=== PATIENT | female | born 1985 | race Caucasian/White ===

== ENCOUNTER 2023-04-15 10:52 | Outpatient (OUT) | payer OTHER, SELFPAY ==
[2023-04-16 05:07] LABS: Progesterone 52.5 ng/mL (.)
== END 2023-04-15 10:53 ==
LOC: LAB 10:52
PROVIDERS: Visit Provider Obstetrics & Gynecology
DX: N92.6 Irregular menstruation, unspecified (principal)
CPT/HCPCS: 36415; 84144

== ENCOUNTER 2023-04-27 13:25 | Outpatient (OUT) | payer OTHER, SELFPAY ==
[2023-04-27 14:28] LABS: HCG Quantitative <1 mIU/mL
== END 2023-04-27 13:26 | disposition home or self-care (01) ==
PROVIDERS: Visit Provider Obstetrics & Gynecology
DX: N83.9 Noninflammatory disorder of ovary, fallopian tube and broad ligament, unspecified (principal)
CPT/HCPCS: 36415; 84702

== ENCOUNTER 2023-04-27 14:24 | Day surgery (SDC) | payer OTHER, SELFPAY ==
--- NOTE | 2023-04-27 14:22 | FL_ITS ---
[address] [address] Patient Name: EDUARDO ALCALA MRN: [id number] date: 1985 Sex: F Assigned Patient Location: [place] Current Patient Location: [place] Accession/Order Number: [id number] Exam Date: 04/27/2023 14:55 Report Date: 04/27/2023 15:57 At the request of: NICO GAMEZ Procedure: RI hysterosalpingography EXAMINATION: RI hysterosalpingography HISTORY: Fallopian tube disorder N83.9 Fragility COMPARISON: No relevant comparison available. TECHNIQUE: Informed consent was obtained. A sterile vaginal speculum was introduced and, following cleansing of the cervix, a attempt to insert a balloon-tipped catheter was made. The catheter could not be advanced through the internal os. Multiple attempts were made to dilate the os without success. After approximately 10 minutes the procedure was terminated. IMPRESSION: Technically unsuccessful hysterosalpingogram, the catheter could not be advanced through the cervix Electronically authenticated by: BENNIE BROOKE Date: 04/27/2023 15:57
[2023-04-27] MEDS: IOHEXOL 240 MG/ML - 10 ML VIAL INJ (15:10)
--- NOTE | 2023-04-27 15:58 | PC.NURSE ---
[address] Manley. Pt recommended to follow up with Dr Babcock for furthur instructions.
== END 2023-04-27 15:25 | disposition home or self-care (01) ==
LOC: FL 14:24
PROVIDERS: Radiology Diagnostic Radiology; Visit Provider Obstetrics & Gynecology
DX: N83.9 Noninflammatory disorder of ovary, fallopian tube and broad ligament, unspecified (principal)
CPT/HCPCS: 36415; 74740; 84702; Q9966

== ENCOUNTER 2023-05-12 07:39 | Outpatient (OUT) | payer OTHER, SELFPAY ==
[2023-05-13 05:08] LABS: Progesterone 8.4 ng/mL (.)
== END 2023-05-12 07:40 | disposition home or self-care (01) ==
LOC: LAB 07:41
PROVIDERS: Visit Provider Obstetrics & Gynecology
DX: N92.6 Irregular menstruation, unspecified (principal)
CPT/HCPCS: 36415; 84144

== ENCOUNTER 2023-06-25 15:42 | Outpatient (OUT) | payer OTHER, SELFPAY ==
[2023-06-27 04:07] LABS: Progesterone 22.7 ng/mL (.)
== END 2023-06-25 15:43 | disposition home or self-care (01) ==
LOC: LAB 15:45
PROVIDERS: Visit Provider Obstetrics & Gynecology
DX: N92.6 Irregular menstruation, unspecified (principal)
CPT/HCPCS: 36415; 84144

== ENCOUNTER 2023-07-08 16:08 | Outpatient (OUT) | payer OTHER, SELFPAY ==
[2023-07-08 17:29] LABS: HCG Quantitative <1 mIU/mL
--- NOTE | 2023-07-09 14:51 | SUR.PREOP ---
07/07/23 Phone call from More Berman LPN to schedule pt this 07/[address] Babcock doing the hsg. She states that she will contact the patient and have her come in for labs on 07/08 and will make her aware of appt date and time.
[2023-07-09 16:40] VITALS: BMI 21.0
--- NOTE | 2023-07-09 16:45 | PC.NURSE ---
1632 Pt c/o minimal amounts of vag bleeding and no pain.
== END 2023-07-08 16:35 | disposition home or self-care (01) ==
LOC: LAB 16:10
PROVIDERS: Visit Provider Obstetrics & Gynecology
DX: N97.0 Female infertility associated with anovulation (principal); N83.9 Noninflammatory disorder of ovary, fallopian tube and broad ligament, unspecified; N97.9 Female infertility, unspecified; E28.2 Polycystic ovarian syndrome
CPT/HCPCS: 36415; 84702

== ENCOUNTER 2023-07-09 15:48 | Day surgery (SDC) | payer OTHER, SELFPAY ==
--- NOTE | 2023-07-09 16:30 | FL_ITS ---
[address] [address] Patient Name: EDUARDO ALCALA MRN: [id number] date: 1985 Sex: F Assigned Patient Location: [place] Current Patient Location: LAB Accession/Order Number: [id number] Exam Date: 07/09/2023 15:55 Report Date: 07/09/2023 16:52 At the request of: NICO BABCOCK Procedure: FL hysterosalpingography EXAMINATION: FL hysterosalpingography HISTORY: Oligo-ovulation N97.0, Fallopian tube disorder N83.9, N97.9 COMPARISON: No relevant comparison available. TECHNIQUE: This exam was performed by Dr. Babcock. I was not present during the exam. 15 seconds of fluoroscopy. 2 images. FINDINGS: FALLOPIAN TUBES: Patent fallopian tubes bilaterally. ENDOMETRIAL CAVITY: No scarring, filling defects, or dilatation. OTHER: Negative. FL/FL hysterosalpingography IMPRESSION: Normal exam Electronically authenticated by: BENNIE BROOKE Date: 07/09/2023 16:52
== END 2023-07-09 16:30 ==
PROVIDERS: Visit Provider Obstetrics & Gynecology
DX: N97.0 Female infertility associated with anovulation (principal); N83.9 Noninflammatory disorder of ovary, fallopian tube and broad ligament, unspecified; N97.9 Female infertility, unspecified; E28.2 Polycystic ovarian syndrome
CPT/HCPCS: 74740; Q9966

== ENCOUNTER 2023-07-10 21:17 | Emergency (ER) | payer OTHER, SELFPAY ==
[2023-07-10] VITALS (10 sets, daily range): BP systolic 105–138; BP diastolic 64–82; PULSE 105; RESP 99; TEMP 36.9; O2SAT 93–100; BMI 21.0
--- NOTE | 2023-07-10 21:28 | CT_ITS ---
The [address] [address] Patient Name: EDUARDO ALCALA MRN: [id number] date: 1985 Sex: F Assigned Patient Location: ER Current Patient Location: ER Accession/Order Number: [id number] Exam Date: 07/10/2023 22:12 Report Date: 07/10/2023 23:43 At the request of: GRICELDA WILHELM Procedure: CT abdomen pelvis w con EXAM: CT SCAN ABDOMEN AND PELVIS WITH IV CONTRAST DATE: 07/10/2023 10:12 PM EDT HISTORY: Patient with abdominal pain in a 38-year-old female after evaluation earlier today of uterus and fallopian tubes (Hysteroscopy) COMPARISON: Ultrasound pelvis 02/13/2023. TECHNIQUE: CT examination of the abdomen and pelvis was performed following the intravenous administration of IV contrast. CT dose lowering techniques were used, to include: automated exposure control, adjustment for patient size, and/or use of iterative reconstruction. Contrast: 100 ml Omnipaque 300 FINDINGS: Computed Tomography Scanner Operator/ Lines and Tubes: Unremarkable Computed Tomography Scanner Operator for acute pathology. Lower Chest: Emphysematous changes are demonstrated bilaterally with platelike atelectasis lung bases. Free Air: None. Liver: The liver is enlarged with intrahepatic biliary distention. Subcentimeter fluid attenuating regions are seen throughout the liver most likely representing cysts and/or hemangiomas although too small to characterize on this single phase exam. Gallbladder: Normal Common Bile Duct: Normal Pancreas: Normal Spleen: Normal Adrenal Glands: Right: Normal Left: Normal Kidneys: Right Kidney: Normal. Right Ureter: Normal. Left Kidney: Normal. Left Ureter: Normal. GI Tract: Distal esophagus in FOV: Normal. Stomach: Normal Small Bowel: There is edema seen involving the small bowel folds. Appendix: Normal on axial image 90 of series 3 Large Bowel: Fluid-filled large bowel demonstrated. Mesentery/Peritoneum: Normal Vasculature: Aorta: Normal. IVC: Normal. Jackie Vein: Normal. Retroperitoneum: Normal Abdominal/Pelvic Wall: Normal Bladder: Within normal limits for the amount of distention. Reproductive: Uterus is in a neutral position. There are some hyperdense mass is seen within the myometrium. Free fluid is seen around the uterus. Right ovary: There is an enlarged right ovarian cystic area which measures outside limits of normal for right ovary at 41 x 44 mm. Left ovary: The left ovary demonstrates a large cystic area which appears to be arising off of the posterior left ovary that measures 44 x 43 mm. Musculoskeletal: Normal Free Fluid: Moderate amount of free fluid is seen in the cul-de-sac. CT/CT abdomen pelvis w con IMPRESSION: 1. Abnormal ovaries with significant free fluid and fluid collections demonstrated arising off of the ovaries concerning for either TOA and/or torsion. Transvaginal ultrasound with spectral Doppler would help better delineate. 2. Normal appendix. 3. Mild prominence of bowel folds. Please correlate for viral enteritis. 4. Mild intrahepatic biliary prominence. Please correlate with patient's LFTs. 5. Liver is enlarged with intrahepatic biliary distention. Subcentimeter fluid attenuating regions are seen throughout the liver most likely representing cysts and/or hemangiomas although too small to characterize on this single phase exam. CRITICAL findings: Spoke with Dr. Gricelda Wilhelm in the ED at 11:42 pm EST Electronically authenticated by: MARÍA ELENA OLSON Date: 07/10/2023 23:43
--- NOTE | 2023-07-10 21:33 | ED_ITS ---
HPI - Female Genitourinary General Chief complaint: Urogenital-Female Stated complaint: Post Operative Complications Time Seen by Provider: 07/10/23 21:27 History of Present Illness HPI Narrative: Patient had a scope of her uterus and fallopian tubes with Dr Babcock today. She now presents to our ED complaining of fever, intense and diffuse abdominal and pelvic pain. No flank pain or urinary symptoms. No vomiting or diarrhea. No skin rash. She does not like to take Percocet or [place] so she has only been taking NSAIDs without relief. Related Data Home Medications Medication Instructions Recorded Confirmed letrozole 7.5 mg PO DAILY 07/09/23 07/09/23 metformin 500 mg tablet 500 mg PO DAILY 07/09/23 07/09/23 Previous Rx's Medication Instructions Recorded doxycycline hyclate 100 mg capsule 100 mg PO BID #14 caps 07/11/23 nabumetone 750 mg tablet 750 mg PO BID PRN pain #14 tabs 07/11/23 Allergies Allergy/AdvReac Type Severity Reaction Status Date / Time No Known Drug Allergies Allergy Verified 07/09/23 14:48 [facility] Medical History (Updated 07/11/23 @ 05:36 by Gricelda Christina) Surgical History (Updated 04/24/23 @ 15:02 by Esther Means) Social History Smoking status: Never smoker Exam Narrative Exam Narrative: Nurses notes and vital signs reviewed and patient is not hypoxic. afebrile General: Well-appearing and in no apparent distress. Skin: Warm, dry, no pallor noted. No rash. Head: Normocephalic, atraumatic. Neck: Supple, non-tender. Eye: Pupils are equal, round and EOMI. No scleral icterus. Cardiovascular: Regular Rate and Rhythm without murmur, gallop or rub. Respiratory: No accessory muscle use or respiratory distress. Lungs are clear to auscultation, no wheezing, rales or rhonchi Back: No CVA tenderness Musculoskeletal: normal ROM, no calf or popliteal tenderness, no lower extremity edema/swelling GI: Abdomen is soft, non-distended. Normal bowel sounds. No masses appreciated. Diffuse suprapubic and bilateral adnexal tenderness to palpation. No rebound, guarding, or rigidity noted. Neurological: A&O x4. No cranial nerve dysfunction observed. No truncal ataxia. Moves all extremities. Sensation intact. Psychiatric: Cooperative and interactive. Normal mood and affect. Constitutional Vital Signs, click to edit/add: Last Vital Signs Temp 98.4 F 07/10/23 21:20 Pulse 105 H 07/10/23 21:20 Resp 99 H 07/10/23 21:20 BP 125/66 07/11/23 01:30 Pulse Ox 95 07/11/23 01:50 O2 Del Method Room Air 07/10/23 21:20 Course Vital Signs Vital signs: Vital Signs Temperature 98.4 F 07/10/23 21:20 Pulse Rate 105 H 07/10/23 21:20 Respiratory Rate 99 H 07/10/23 21:20 Blood Pressure 105/80 07/10/23 21:20 Oxygen Delivery Method Room Air 07/10/23 21:20 Temperature 98.4 F 07/10/23 21:20 Pulse Rate 105 H 07/10/23 21:20 Respiratory Rate 99 H 07/10/23 21:20 Blood Pressure 125/66 07/11/23 01:30 Pulse Oximetry 95 07/11/23 01:50 Oxygen Delivery Method Room Air 07/10/23 21:20 MDM - Female Genitourinary MDM Narrative Medical decision making narrative: peripheral IV established and blood drawn and sent for testing. Urine ordered to also be sent for testing. The patient was ordered to undergo CT scanning of the abdomen pelvis with IV contrast. Unremarkable CBC and CMP. UA contaminated. CT shows findings concerning for ovarian torsion vs Tubo-Ovarian Abscess. I spoke with the radiologist by phone and due to these changes I asked that the n call US tech be called in from home to complete a scan of the patient's pelvis. US does not offer any further info - abnormal enlargement of the left ovary with multiple cystic foci in left adnexa - ovarian cyst vs TOA. Right ovary not well visualized. Large amount of free fluid in pelvis. I called and spoke with Dr Babcock by phone. He told me that the free fluid is likely dye from the procedure. He asked that I discharge the patient with a prescription for doxycycline and pain meds and have her follow up in the office. She had already been given Flagyl and Cipro in the ED. She declined offer for [place] or Percocet. I prescribed doxycycline and Relafen. Lab Data Attestation: I reviewed the patient's lab results. Labs: Lab Results 07/10/23 07/10/23 Range/Units 21:37 22:28 WBC 10.4 (4.0-11.0) 10^3/uL RBC 4.58 (4.20-5.40) 10^6/uL Hgb 13.0 (12.0-16.0) g/dL Hct 37.9 (36.0-48.0) % MCV 82.8 (81.0-99.0) fL MCH 28.4 (26.7-34.0) pg MCHC 34.3 (29.9-35.2) g/dL RDW 13.2 (11.0-15.0) % Plt Count 268 (150-450) 10^3/uL MPV 9.1 L (9.5-13.5) fL Neut % (Auto) 92.3 H (43.0-75.0) % Lymph % (Auto) 5.8 L (20.5-60.0) % [place] % (Auto) 1.5 L (1.7-12.0) % Eos % (Auto) 0.0 L (0.9-7.0) % Baso % (Auto) 0.2 (0.2-2.0) % Neut # (Auto) 9.6 H (1.4-6.5) 10^3/uL Lymph # (Auto) 0.6 L (1.2-3.8) 10^3/uL [place] # (Auto) 0.2 L (0.3-0.8) 10^3/uL Eos # (Auto) 0.0 (0.0-0.7) 10^3/uL Baso # (Auto) 0.0 (0.0-0.1) 10^3/uL Abs Immat Gran (auto) 0.02 (0.00-0.03) 10^3/uL Imm/Tot Granulo (auto) 0.2 (0.0-0.5) % Sodium 136 (136-145) mmol/L Potassium 3.4 L (3.5-5.1) mmol/L Chloride 101 (98-107) mmol/L Carbon Dioxide 22.2 (21.0-32.0) mmol/L Anion Gap 16.2 BUN 11.0 (7.0-18.0) mg/dL Creatinine 0.62 (0.55-1.02) mg/dL Est GFR ( Amer) >60 (>=60) Est GFR (Non-Af Amer) >60 (>=60) BUN/Creatinine Ratio 17.7 Glucose 114 H (74-106) mg/dL Calcium 8.6 (8.5-10.1) mg/dL Total Bilirubin 1.1 H (0.2-1.0) mg/dL AST 9 L (15-37) U/L ALT 15 (14-59) U/L Alkaline Phosphatase 49 (46-116) U/L Total Protein 6.5 (6.4-8.2) g/dL Albumin 3.7 (3.4-5.0) g/dL Globulin 2.8 g/dL Albumin/Globulin Ratio 1.3 Urine Color Lt. yellow (YELLOW) Urine Clarity Clear (CLEAR) Urine pH 6.5 (5.0-9.0) Ur Specific [place] <=1.005 A (1.005-1.025) Urine Protein Negative (NEG/TRACE) mg/dL Urine Glucose (UA) Negative (NEGATIVE) mg/dL Urine Ketones >=80 A (NEGATIVE) mg/dL Urine Occult Blood Large A (NEGATIVE) Urine Nitrite Negative (NEGATIVE) Urine Bilirubin Negative (NEGATIVE) Urine Urobilinogen 0.2 (0.2-1.0) EU/dL Ur Leukocyte Esterase Trace A (NEGATIVE) Urine RBC 0-2 (0-2) #/HPF Urine WBC 2-5 A (NONE SEEN) #/HPF Ur Squamous Epith Cells Many A (NONE/RARE) #/LPF Urine Crystals Seen A (None Seen) #/HPF Amorphous Sediment Few Urine Bacteria Moderate A (NONE SEEN) #/HPF Urine Casts None seen (NONE SEEN) #/LPF Urine Mucus None seen (NONE SEEN) Ur Culture Indicated? Yes Imaging Data CT scan - abdomen: Radiologist's impression: Patient: EDUARDO ALCALA MR#: [id number] : 1985 Acct:[id number] Age/Sex: 38 / F ADM Date: 07/10/23 Loc: ER Attending Dr: Ordering Physician: Gricelda Christina D.O. Date of Service: 07/10/23 Procedure(s): CT abdomen pelvis w con Accession Number(s): [id number] cc: ~ [facility] [address], [place] [id number] Patient Name: EDUARDO ALCALA MRN: [id number] date: 1985 Sex: F Assigned Patient Location: ER Current Patient Location: ER Accession/Order Number: [id number] Exam Date: 07/10/2023 22:12 Report Date: 07/10/2023 23:36 At the request of: GRICELDA CHRISTINA Procedure: CT abdomen pelvis w con EXAM: CT SCAN ABDOMEN AND PELVIS WITH IV CONTRAST DATE: 07/10/2023 10:12 PM EDT HISTORY: post-hysterectomy/salpingectomy abdominal pain in a 38-year-old female COMPARISON: Ultrasound pelvis 02/13/2023. TECHNIQUE: CT examination of the abdomen and pelvis was performed following the intravenous administration of IV contrast. CT dose lowering techniques were used, to include: automated exposure control, adjustment for patient size, and/or use of iterative reconstruction. Contrast: 100 ml Omnipaque 300 FINDINGS: Claims Collector/ Lines and Tubes: Unremarkable Claims Collector for acute pathology. Lower Chest: Emphysematous changes are demonstrated bilaterally with platelike atelectasis lung bases. Free Air: None. Liver: The liver is enlarged with intrahepatic biliary distention. Subcentimeter fluid attenuating regions are seen throughout the liver most likely representing cysts and/or hemangiomas although too small to characterize on this single phase exam. Gallbladder: Normal Common Bile Duct: Normal Pancreas: Normal Spleen: Normal Adrenal Glands: Right: Normal Left: Normal Kidneys: Right Kidney: Normal. Right Ureter: Normal. Left Kidney: Normal. Left Ureter: Normal. GI Tract: Distal esophagus in FOV: Normal. Stomach: Normal Small Bowel: There is edema seen involving the small bowel folds. Appendix: Normal on axial image 90 of series 3 Large Bowel: Fluid-filled large bowel demonstrated. Mesentery/Peritoneum: Normal Vasculature: Aorta: Normal. IVC: Normal. Jackie Vein: Normal. Retroperitoneum: Normal Abdominal/Pelvic Wall: Normal Bladder: Within normal limits for the amount of distention. Reproductive: Uterus is in a neutral position. There are some hyperdense mass is seen within the myometrium. Free fluid is seen around the uterus. Right ovary: There is an enlarged right ovarian cystic area which measures outside limits of normal for right ovary at 41 x 44 mm. Left ovary: The left ovary demonstrates a large cystic area which appears to be arising off of the posterior left ovary that measures 44 x 43 mm. Musculoskeletal: Normal Free Fluid: Moderate amount of free fluid is seen in the cul-de-sac. CT/CT abdomen pelvis w con IMPRESSION: 1. Abnormal ovaries with significant free fluid and fluid collections demonstrated arising off of the ovaries concerning for either TOA and/or torsion. Transvaginal ultrasound with spectral Doppler would help better delineate. 2. Normal appendix. 3. Mild prominence of bowel folds. Please correlate for viral enteritis. 4. Mild intrahepatic biliary prominence. Please correlate with patient's LFTs. 5. Liver is enlarged with intrahepatic biliary distention. Subcentimeter fluid attenuating regions are seen throughout the liver most likely representing cysts and/or hemangiomas although too small to characterize on this single phase exam. CRITICAL findings: Spoke with in the at EST Electronically authenticated by: MARÍA ELENA OLSON Date: 07/10/2023 23:36 us pelvis: Radiologist's impression: Patient Name: EDUARDO ALCALA MRN: [id number] date: 1985 Sex: F Assigned Patient Location: ER Current Patient Location: ER Accession/Order Number: [id number] Exam Date: 07/11/2023 00:30 Report Date: 07/11/2023 01:49 At the request of: GRICELDA CHRISTINA Procedure: US pelvis transvaginal US pelvis transvaginal HISTORY: ovarian torsion vs tubo-ovarian abscess COMPARISONS: CT scan from 07/10/2023 TECHNIQUE: Transvaginal imaging the pelvis was performed. FINDINGS: UTERUS: Normal in size and echogenicity. The uterus measures 6.5 x 4.3 x 4.0 cm. MYOMETRIUM:There may be a small myoma in the superior uterus measuring 2.1 cm. ENDOMETRIUM: The endometrium is within normal limits. The endometrium measures9 mm which is within normal range. RIGHT OVARY: The right ovary cannot be definitively delineated on this examination. There is a large amount of free fluid in the pelvis with multiple peristalsing loops of bowel in the right adnexa. LEFT OVARY: There is enlargement of the left ovary with multiple cystic foci present within and around it. The left ovary measures 7.1 x 7.5 x 3.7 cm. Approximate measurement of the dominant cysts are 3.6 x 3.1 x 3.8 cm, 5.0 x 2.8 x 5.3 cm and 3.9 x 3.7 x 4.6 cm. Flow is visualized within the left ovarian tissue. OTHER:There is a large amount of free fluid in the pelvis. IMPRESSION: 1. Large amount of free fluid in the pelvis with multiple peristalsing bowel loops causing obscuration of the right adnexa and the right ovary. 2. Abnormal enlargement of the left ovary with multiple cystic foci in the left adnexa as described above which may represent ovarian cyst versus tubo-ovarian abscess formation in the proper clinical setting. Vascular flow is visualized to the visualized left ovarian tissue. Electronically authenticated by: ANDREA JURADO Date: 07/11/2023 01:49 Discharge Plan Discharge Chief Complaint: Urogenital-Female Clinical Impression: Acute postoperative abdominal pain, Ovarian cyst, Abdominal pain Patient Disposition: Home, Self-Care Time of Disposition Decision: 02:00 Prescriptions / Home Meds: New doxycycline hyclate 100 mg capsule 100 mg PO BID Qty: 14 0RF nabumetone 750 mg tablet 750 mg PO BID PRN (Reason: pain) Qty: 14 0RF No Action letrozole 7.5 mg PO DAILY metformin 500 mg tablet 500 mg PO DAILY Instructions: Ovarian Cyst (ED), Abdominal Pain (ED) Stand Alone Forms: Portal Instructions Referrals: Osman Babcock DO [Physician] - 1 week
[2023-07-10] MEDS: ONDANSETRON PF 4 MG/2 ML VIAL IV (21:44)
[2023-07-10] MEDS: 0.9 % SODIUM CHLORIDE 1,000 ML 999 ML IV (21:44)
[2023-07-10] MEDS: HYDROMORPHONE HCL 2 MG/ML VIAL 1 MG IV (21:44)
[2023-07-10 21:59] LABS: Basophils Percent Auto 0.2 % (0.2-2.0); Hematocrit 37.9 % (36.0-48.0); Immature Granulocytes Abs Auto 0.02 10^3/uL (0.00-0.03); Immature Granulocytes Pct Auto 0.2 % (0.0-0.5); Lymphocytes Absolute Auto 0.6 10^3/uL (1.2-3.8); Lymphocytes Percent Auto 5.8 % (20.5-60.0); Mean Corpuscular HGB Conc 34.3 g/dL (29.9-35.2); Mean Corpuscular Hemoglobin 28.4 pg (26.7-34.0); Mean Corpuscular Volume 82.8 fL (81.0-99.0); Mean Platelet Volume 9.1 fL (9.5-13.5); Monocytes Absolute Auto 0.2 10^3/uL (0.3-0.8); Monocytes Percent Auto 1.5 % (1.7-12.0); Neutrophils Absolute Auto 9.6 10^3/uL (1.4-6.5); Neutrophils Percent Auto 92.3 % (43.0-75.0); Platelet Count 268 10^3/uL (150-450); Red Blood Count 4.58 10^6/uL (4.20-5.40); Red Cell Distribution Width 13.2 % (11.0-15.0); White Blood Count 10.4 10^3/uL (4.0-11.0)
[2023-07-10 22:18] LABS: Alanine Aminotransferase 15 U/L (14-59); Albumin Globulin Ratio 1.3; Albumin Level 3.7 g/dL (3.4-5.0); Alkaline Phosphatase 49 U/L (46-116); Anion Gap 16.2; Aspartate Amino Transferase 9 U/L (15-37); BUN Creatinine Ratio 17.7; Bilirubin Total 1.1 mg/dL (0.2-1.0); Calcium 8.6 mg/dL (8.5-10.1); Carbon Dioxide 22.2 mmol/L (21.0-32.0); Chloride 101 mmol/L (98-107); Estimated GFR (African America >60 (>=60); Estimated GFR (Non-African Ame >60 (>=60); Globulin 2.8 g/dL; Glucose 114 mg/dL (74-106); Potassium 3.4 mmol/L (3.5-5.1); Sodium 136 mmol/L (136-145); Total Protein 6.5 g/dL (6.4-8.2)
[2023-07-10 22:34] LABS: Bilirubin Urine NEGATIVE (NEGATIVE); Blood Urine LARGE (NEGATIVE); Clarity Urine CLEAR (CLEAR); Color Urine LT. YELLOW (YELLOW); Glucose Urine UA NEGATIVE (NEGATIVE); Ketones Urine >=80 mg/dL (NEGATIVE); Leukocyte Esterase Urine TRACE (NEGATIVE); Nitrite Urine NEGATIVE (NEGATIVE); Protein Urine NEGATIVE (NEG/TRACE); Specific Gravity Urine <=1.005 (1.005-1.025); Urobilinogen Urine 0.2 EU/dL (0.2-1.0); pH Urine 6.5 (5.0-9.0)
[2023-07-10 22:35] LABS: Urine Microscopic Indicated YES
[2023-07-10 22:41] LABS: Amorphous Sediment Urine FEW; Bacteria Urine MODERATE #/HPF (NONE SEEN); Cast Seen? NONE SEEN #/LPF (NONE SEEN); Crystals Seen? Seen #/HPF (None Seen); Mucus Urine NONE SEEN (NONE SEEN); RBC Urine 0-2 #/HPF (0-2); Squamous Epithelial Cell Urine MANY #/LPF (NONE/RARE); Urine Culture Indicated YES
[2023-07-11] VITALS (9 sets, daily range): BP systolic 115–125; BP diastolic 66–71; O2SAT 95–98
[2023-07-11] MEDS: CIPROFLOXACIN IN 5 % DEXTROSE 400 MG/200 ML PIGGYBACK 200 MG IV
[2023-07-11] MEDS: HYDROMORPHONE HCL 2 MG/ML VIAL 1 MG IV (00:55)
[2023-07-11] MEDS: METRONIDAZOLE/SODIUM CHLORIDE 500 MG/100 ML PREMIX 100 MG IV (01:29)
--- NOTE | 2023-07-11 23:44 | US_ITS ---
The [address] [address] Patient Name: EDUARDO ALCALA MRN: [id number] date: 1985 Sex: F Assigned Patient Location: ER Current Patient Location: ER Accession/Order Number: [id number] Exam Date: 07/11/2023 00:30 Report Date: 07/11/2023 01:49 At the request of: GRICELDA CHRISTINA Procedure: US pelvis transvaginal US pelvis transvaginal HISTORY: ovarian torsion vs tubo-ovarian abscess COMPARISONS: CT scan from 07/10/2023 TECHNIQUE: Transvaginal imaging the pelvis was performed. FINDINGS: UTERUS: Normal in size and echogenicity. The uterus measures 6.5 x 4.3 x 4.0 cm. MYOMETRIUM:There may be a small myoma in the superior uterus measuring 2.1 cm. ENDOMETRIUM: The endometrium is within normal limits. The endometrium measures9 mm which is within normal range. RIGHT OVARY: The right ovary cannot be definitively delineated on this examination. There is a large amount of free fluid in the pelvis with multiple peristalsing loops of bowel in the right adnexa. LEFT OVARY: There is enlargement of the left ovary with multiple cystic foci present within and around it. The left ovary measures 7.1 x 7.5 x 3.7 cm. Approximate measurement of the dominant cysts are 3.6 x 3.1 x 3.8 cm, 5.0 x 2.8 x 5.3 cm and 3.9 x 3.7 x 4.6 cm. Flow is visualized within the left ovarian tissue. OTHER:There is a large amount of free fluid in the pelvis. US/US pelvis transvaginal IMPRESSION: 1. Large amount of free fluid in the pelvis with multiple peristalsing bowel loops causing obscuration of the right adnexa and the right ovary. 2. Abnormal enlargement of the left ovary with multiple cystic foci in the left adnexa as described above which may represent ovarian cyst versus tubo-ovarian abscess formation in the proper clinical setting. Vascular flow is visualized to the visualized left ovarian tissue. Electronically authenticated by: ANDREA JURADO Date: 07/11/2023 01:49
== END 2023-07-11 02:30 | disposition home or self-care (01) ==
PROVIDERS: Emergency Provider Emergency Medicine
DX: R10.9 Unspecified abdominal pain (principal); G89.18 Other acute postprocedural pain; N83.202 Unspecified ovarian cyst, left side; Z79.84 Long term (current) use of oral hypoglycemic drugs; Z79.899 Other long term (current) drug therapy
CPT/HCPCS: 36415; 74177; 76830; 80053; 81001; 85025; 87086; 93975; 96365; 96366; 96375; 96376; 99285; J0744; J1170; J1836; J2405; Q9967

== ENCOUNTER 2023-07-12 10:29 | Inpatient (IN) | payer OTHER, SELFPAY ==
[2023-07-12] VITALS (23 sets, daily range): BP systolic 107–131; BP diastolic 65–82; PULSE 95–124; RESP 16–26; TEMP 36.7–37.9; O2SAT 95–100; BMI 21.0; BMI 20.1
--- NOTE | 2023-07-12 10:41 | ECG_ITS ---
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
[2023-07-12] MEDS: 0.9 % SODIUM CHLORIDE 1,000 ML 1000 ML IV ×2 (10:54→15:13)
[2023-07-12] MEDS: ONDANSETRON PF 4 MG/2 ML VIAL IV ×3 (10:56→20:45)
[2023-07-12] MEDS: FAMOTIDINE/PF 20 MG/2 ML VIAL IV (10:57)
[2023-07-12] MEDS: KETOROLAC TROMETHAMINE 30 MG/ML VIAL 15 MG IVP (10:57)
--- NOTE | 2023-07-12 11:16 | ED.ABDPAIN1 ---
HPI - Abdominal Pain General Chief Complaint: Abdominal Pain Stated Complaint: STOMACH PAIN Time Seen by Provider: 07/12/23 10:41 Source: patient Mode of arrival: walk-in Limitations: no limitations History of Present Illness HPI narrative: The patient is coming to the ER for the second time within 3 days for the same reason complaining of generalized lower abdominal pain associated with the shoulder pain since a fever as well as tachycardia the patient was evaluated for the same reason 2 days ago after she recently had a scope for the fallopian tube and last time she was evaluated she was discharged home with doxycycline that according to her did not help and the pain medication that she was provided with also did not help The patient mentioned that she does not want to take Percocet and she had a COVID test that was negative at home Related Data Home Medications Medication Instructions Recorded Confirmed letrozole 7.5 mg PO DAILY 07/09/23 07/12/23 metformin 500 mg tablet 500 mg PO .QD@17 07/09/23 07/12/23 Previous Rx's Medication Instructions Recorded doxycycline hyclate 100 mg capsule 100 mg PO BID #14 caps 07/11/23 nabumetone 750 mg tablet 750 mg PO BID PRN pain #14 tabs 07/11/23 Allergies Allergy/AdvReac Type Severity Reaction Status Date / Time No Known Drug Allergies Allergy Verified 07/12/23 13:55 Review of Systems ROS Status of ROS 10 or more systems reviewed and unremarkable except as noted in history and below [facility] Medical History (Updated 07/12/23 @ 13:21 by Donna Gibbs MD) Surgical History (Updated 04/24/23 @ 15:02 by Esther Means) Social History Smoking status: Former smoker Exam Narrative Exam Narrative: Nurses notes and vital signs reviewed and patient is not hypoxic. General: Well-appearing and in no apparent distress. Skin: Warm, dry, no pallor noted. No rash. Head: Normocephalic, atraumatic. Neck: Supple, non-tender. Eye: Pupils are equal, round and EOMI. No scleral icterus. Ears, Nose, Mouth, and Throat: TM are clear, no nasal mucosal hypertrophy. Oral mucosa is moist, no posterior oropharynx erythema, uvula is mid-line Cardiovascular: Regular Rate and Rhythm without murmur, gallop or rub. Respiratory: No accessory muscle use or respiratory distress. Lungs are clear to auscultation, no wheezing, rales or rhonchi Chest Wall: no tenderness Back: No midline thoracic or lumbar vertebral tenderness. No CVA tenderness Musculoskeletal: normal ROM, no calf or popliteal tenderness, no lower extremity edema/swelling GI: Abdomen is soft, non-distended. Normal bowel sounds. No masses appreciated. Upon palpation of the lower abdomen generally and mostly in the left side Neurological: A&O x4. No cranial nerve dysfunction observed. No truncal ataxia. Moves all extremities. Sensation intact. Psychiatric: Cooperative and interactive. Normal mood and affect. Constitutional Vital Signs, click to edit/add: Last Vital Signs Temp 98.0 F 07/12/23 10:33 Pulse 101 H 07/12/23 13:00 Resp 16 07/12/23 13:00 BP 131/81 07/12/23 10:33 Pulse Ox 100 07/12/23 10:33 O2 Del Method Room Air 07/12/23 10:33 Course Vital Signs Vital signs: Vital Signs Temperature 98.0 F 07/12/23 10:33 Pulse Rate 124 H 07/12/23 10:33 Respiratory Rate 20 07/12/23 10:33 Blood Pressure 131/81 07/12/23 10:33 Pulse Oximetry 100 07/12/23 10:33 Oxygen Delivery Method Room Air 07/12/23 10:33 Temperature 98.0 F 07/12/23 10:33 Pulse Rate 101 H 07/12/23 13:00 Respiratory Rate 16 07/12/23 13:00 Blood Pressure 131/81 07/12/23 10:33 Pulse Oximetry 100 07/12/23 10:33 Oxygen Delivery Method Room Air 07/12/23 10:33 MDM - Abdominal Pain MDM Narrative Medical decision making narrative: EKG showing sinus tachycardia heart rate is [address] elevation or depression The patient presented with the possibility of the abscess and infection going on especially that she had recent work-up showing possible ovarian abscess the patient had a blood work-up showing leukocytosis chemistry showing some hypokalemia and hypomagnesemia Blood culture obtained and the patient was started on ceftriaxone and Flagyl IV she already was taking doxycycline The patient also had a D-dimer that was elevated she had a CT of the angio of the chest and it shows no acute significant pathology but the CT of the abdomen shows that the fluid collection again and possibility of starting small bowel obstruction I spoke with Dr. Babcock and he agreed that the patient need to be admitted for further evaluation of the possible abscess and possible drainage he also wanted to the general surgery to be consulted which I spoke with in general surgery and he thinks that this is mostly ileus and solving the main issue which is the abscess and fluid collection at the main plan The patient will be admitted under Dr. Macdonald I spoke with Dr. Rider in the area and the above-mentioned plan Lab Data Labs: Lab Results 07/12/23 Range/Units 10:45 WBC 21.7 H (4.0-11.0) 10^3/uL RBC 4.70 (4.20-5.40) 10^6/uL Hgb 13.7 (12.0-16.0) g/dL Hct 39.1 (36.0-48.0) % MCV 83.2 (81.0-99.0) fL MCH 29.1 (26.7-34.0) pg MCHC 35.0 (29.9-35.2) g/dL RDW 13.4 (11.0-15.0) % Plt Count 356 (150-450) 10^3/uL MPV 9.8 (9.5-13.5) fL Seg Neuts % (Manual) 96.0 Lymphocytes % (Manual) 2.0 L (20.5-60.0) % Monocytes % (Manual) 2.0 (1.7-12.0) % Eosinophils % (Manual) 0.0 L (0.9-7.0) % Basophils % (Manual) 0.0 L (0.2-2.0) % Neutrophils # (Manual) 20.83 H (1.4-6.5) 10^3/uL Lymphocytes # (Manual) 0.43 L (1.20-3.80) 10^3/uL Monocytes # (Manual) 0.43 (0.30-0.80) 10^3/uL Eosinophils # (Manual) 0.00 (0.00-0.70) 10^3/uL Basophils # (Manual) 0.00 (0.00-0.10) 10^3/uL PT 11.8 H (9.0-11.6) sec INR 1.12 D-Dimer 8.94 H* (<=0.59) mg/L FEU Sodium 132 L (136-145) mmol/L Potassium 3.2 L (3.5-5.1) mmol/L Chloride 97 L (98-107) mmol/L Carbon Dioxide 24.5 (21.0-32.0) mmol/L Anion Gap 13.7 BUN 16.0 (7.0-18.0) mg/dL Creatinine 0.68 (0.55-1.02) mg/dL Est GFR ( Amer) >60 (>=60) Est GFR (Non-Af Amer) >60 (>=60) BUN/Creatinine Ratio 23.5 Glucose 125 H (74-106) mg/dL Lactate 2.0 (0.4-2.0) mmol/L Calcium 9.4 (8.5-10.1) mg/dL Magnesium 1.7 L (1.8-2.4) mg/dL Total Bilirubin 0.7 (0.2-1.0) mg/dL AST 10 L (15-37) U/L ALT 13 L (14-59) U/L Alkaline Phosphatase 81 (46-116) U/L Troponin I High Sens <4.0 L (4.0-51.3) pg/mL Total Protein 7.3 (6.4-8.2) g/dL Albumin 3.2 L (3.4-5.0) g/dL Globulin 4.1 g/dL Albumin/Globulin Ratio 0.8 SARS-CoV-2 (PCR) Negative (NEGATIVE) Discharge Plan Discharge Chief Complaint: Abdominal Pain Clinical Impression: Tubo-ovarian abscess Patient Disposition: Admitted As Inpatient Time of Disposition Decision: 13:21 Condition: Good
[2023-07-12 11:24] LABS: Hematocrit 39.1 % (36.0-48.0); Hemoglobin 13.7 g/dL (12.0-16.0); Mean Corpuscular Hemoglobin 29.1 pg (26.7-34.0); Mean Corpuscular Volume 83.2 fL (81.0-99.0); Mean Platelet Volume 9.8 fL (9.5-13.5); Platelet Count 356 10^3/uL (150-450); Red Cell Distribution Width 13.4 % (11.0-15.0); White Blood Count 21.7 10^3/uL (4.0-11.0)
[2023-07-12 11:32] LABS: SARS-CoV-2 Ag NEGATIVE (NEGATIVE)
[2023-07-12 11:37] LABS: HCG Qualitative NEGATIVE (NEGATIVE)
[2023-07-12 11:42] LABS: Alanine Aminotransferase 13 U/L (14-59); Albumin Globulin Ratio 0.8; Albumin Level 3.2 g/dL (3.4-5.0); Alkaline Phosphatase 81 U/L (46-116); Anion Gap 13.7; Aspartate Amino Transferase 10 U/L (15-37); BUN Creatinine Ratio 23.5; Bilirubin Total 0.7 mg/dL (0.2-1.0); Calcium 9.4 mg/dL (8.5-10.1); Carbon Dioxide 24.5 mmol/L (21.0-32.0); Chloride 97 mmol/L (98-107); Estimated GFR (African America >60 (>=60); Estimated GFR (Non-African Ame >60 (>=60); Globulin 4.1 g/dL; Glucose 125 mg/dL (74-106); Magnesium 1.7 mg/dL (1.8-2.4); Potassium 3.2 mmol/L (3.5-5.1); Sodium 132 mmol/L (136-145); Total Protein 7.3 g/dL (6.4-8.2); Troponin I High Sensitivity <4.0 pg/mL (4.0-51.3)
--- NOTE | 2023-07-12 11:51 | CT_ITS ---
The [address] [address] Patient Name: EDUARDO ALCALA MRN: [id number] date: 1985 Sex: F Assigned Patient Location: ER Current Patient Location: ER Accession/Order Number: [id number] Exam Date: 07/12/2023 12:05 Report Date: 07/12/2023 12:43 At the request of: ANTONIA RUFFIN Procedure: CT abdomen pelvis wo con CT abdomen pelvis wo con CLINICAL HISTORY: Left lower quadrant pain. History of possible abscess COMPARISON: 07/10/2023. 07/11/2023. TECHNIQUE: No IV contrast axial CT scan from lung bases through symphysis pubis. Lack of IV contrast limits evaluation of solid organs. Oral contrast was not administered. Coronal and sagittal reconstructed images generated. Dose reduction techniques were achieved by using automated exposure control and/or adjustment of mA and/or kV according to patient size and/or use of iterative reconstruction technique. FINDINGS: CT ABDOMEN FINDINGS: Normal heart size. Slight dependent atelectasis. Liver and spleen normal in size. Multiple scattered hepatic cysts similar to prior. Normal sized adrenal glands. Sludge in the gallbladder. Pancreas unremarkable. Nonobstructing left upper pole renal calculus. No obstructing stones or hydronephrosis. Normal caliber abdominal aorta. Multiple dilated air-fluid filled loops of small bowel with transition point in the right lower quadrant/narrowing. There is mild fluid distal to the site into the terminal ileum and right colon. Wall thickening and congestion throughout multiple small bowel loops. No drainable ascites. Appendix normal in caliber. No free air or pneumatosis. CT PELVIS FINDINGS: Uterus unremarkable. Conglomerate of right ovarian cyst again seen up to 3.7 cm largest. There is a left dominant ovarian cyst of 5.6 cm previously 4.4 cm. Small free fluid in the pelvis but decreased slightly from prior. Urinary bladder unremarkable. No acute bony process. CT/CT abdomen pelvis wo con IMPRESSION: Interval findings of the large bowel concerning for early obstruction with transition point in the right lower quadrant and upstream air fluid distention. Other major consideration would be enteritis. Short-term follow-up. No free air. Bilateral ovarian cysts or fluid collections or abscess are again seen and slightly increased on the left. Is there any evidence of PID/infection versus ovarian hyperstimulation? Close follow-up. Sludge in the gallbladder. Nonobstructing left renal calculus. Electronically authenticated by: KULWINDER ROSSI Date: 07/12/2023 12:43
[2023-07-12] MEDS: HYDROMORPHONE HCL 0.5 MG/0.5 ML SYRINGE IV (11:52)
[2023-07-12] MEDS: PROCHLORPERAZINE 10 MG/2 ML VIAL 5 MG IV (11:53)
[2023-07-12 11:54] LABS: INR 1.12; Prothrombin Time 11.8 sec (9.0-11.6)
[2023-07-12 11:59] LABS: Lymphocytes Absolute Manual 0.43 10^3/uL (1.20-3.80); Monocytes Absolute Manual 0.43 10^3/uL (0.30-0.80); Segmented Neut Absolute Manual 20.83 10^3/uL (1.4-6.5)
[2023-07-12 12:05] LABS: D Dimer 8.94 mg/L FEU (<=0.59)
--- NOTE | 2023-07-12 12:05 | CT_ITS ---
The [address] [address] Patient Name: EDUARDO ALCALA MRN: [id number] date: 1985 Sex: F Assigned Patient Location: ER Current Patient Location: Accession/Order Number: [id number] Exam Date: 07/12/2023 12:09 Report Date: 07/12/2023 12:46 At the request of: ANTONIA RUFFIN Procedure: CT angio chest CT angio chest CLINICAL: PE work up. Chest pain. COMPARISON: No prior chest studies are available. TECHNIQUE: Thin section axial images were obtained from thoracic inlet to the diaphragms following the administration of intravenous contrast. CT angiographic reconstructions of the pulmonary arteries including multiple intensity projections in coronal and sagittal planes were performed. Dose reduction: mA and/or kV are were adjusted by automated exposure control software based upon patients height and weight. FINDINGS: Thoracic inlet and axillary structures are intact. Triangular soft tissue density anterior mediastinum likely thymic remnant. Heart size is normal. No pericardial effusion. No mediastinal or hilar adenopathy by CT criteria. The pulmonary arterial tree is opacified and does not show filling defect to indicate pulmonary embolism. Limited upper abdominal images show no acute findings. There are small low density lesions in the liver which are too small to definitively characterize but are probably small cysts by density measurement. Please see separate report for CT abdomen pelvis performed concurrently with this exam. Lung windows show pleural based densities at the posterior bases consistent with atelectasis, slightly greater on the left. No significant effusion or regional airspace consolidation. The lung apices show mild centrilobular emphysematous changes. No suspicious pulmonary nodule. Central airways are patent. Osseous structures show no acute traumatic or destructive lesion. CT/CT angio chest IMPRESSION: 1. No evidence of pulmonary embolism. 2. Pleural-based densities at the posterior lung bases, most likely representing atelectasis. No additional acute intrathoracic findings. Please see separate report for abdomen and pelvis CT concurrently with this exam. Electronically authenticated by: BENNIE PINO Date: 07/12/2023 12:46
[2023-07-12] MEDS: CEFTRIAXONE 1,000 MG in 0.9 % SODIUM CHLORIDE 50 ML 100 MG IV (12:30)
[2023-07-12] MEDS: METRONIDAZOLE/SODIUM CHLORIDE 500 MG/100 ML PREMIX 100 MG IV ×2 (12:58→17:14)
[2023-07-12] MEDS: MAGNESIUM SULFATE/D5W 1 GM/100 ML PIGGYBACK IV (14:01)
--- NOTE | 2023-07-12 14:02 | P.HP_ITS ---
H&P: HPI History of Present Illness Chief complaint: STOMACH PAIN TUBO OVARION ABSES Narrative: Patient with recent procedure who hysteroscopy, is 3 days ago, had increasing pain the following day was seen and evaluated in the emergency room placed on antibiotics, possible abscess of the fluid collection could be related to the dye related to the procedure. Patient returns now has a significant white blood cell count and fever. Patient will be admitted for for intra-abdominal fluid collection Review of Systems ROS Status of ROS 10 or more systems reviewed and unremarkable except as noted in history and below Constitutional Reports: fever and chills Eyes Denies: change in vision Ears, nose, mouth, and throat Denies: throat pain Cardiovascular Denies: chest pain Respiratory Denies: shortness of breath Gastrointestinal Reports: abdominal pain, nausea and vomiting Integumentary/Breast Reports: rash Neurological Denies: headache Psychiatric Denies: anxiety Endocrine Denies: excessive urination [facility] Medical History (Updated 07/12/23 @ 13:21 by Donna Gibbs MD) Surgical History (Updated 04/24/23 @ 15:02 by Esther Means) Family History (Updated 07/12/23 @ 14:37 by Gillian Khan) Brother Family history of cancer Social History (Updated 07/12/23 @ 14:41 by Gillian Khan) Within the past year, how often did you have a drink containing alcohol: monthly or less Within the past year, how often did you have six or more drinks on one occasion: never Smoking status: Former smoker Non-prescribed substance use: cannabis (any form) Non-prescribed substance use details: not now but in past Previous 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 history: [employer]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 [employer] Highest level of school completed/degree received: high school graduate Are you now , , , , never or living with a partner: Little interest or pleasure in doing things: not at all Feeling down, depressed, or hopeless: not at all Feel stressed/tense/nervous/anxious/difficulty sleeping: only a little Life stressor details: infertility issues Due to disability, difficulty making decisions: No Do you think of yourself as: straight/heterosexual Gender Identity: female Meds Home Medications and Allergies Home Medications Medication Instructions Recorded Confirmed Type letrozole 7.5 mg PO DAILY 07/09/23 07/12/23 History metformin 500 mg tablet 500 mg PO .QD@17 07/09/23 07/12/23 History doxycycline hyclate 100 mg capsule 100 mg PO BID #14 caps 07/11/23 07/12/23 Rx nabumetone 750 mg tablet 750 mg PO BID PRN pain #14 tabs 07/11/23 07/12/23 Rx Allergies Allergy/AdvReac Type Severity Reaction Status Date / Time No Known Drug Allergies Allergy Verified 07/12/23 13:55 Exam Constitutional Vital Signs, click to edit/add: Last Vital Signs Temp 98.0 F 07/12/23 10:33 Pulse 101 H 07/12/23 13:00 Resp 16 07/12/23 13:00 BP 131/81 07/12/23 10:33 Pulse Ox 100 07/12/23 10:33 O2 Del Method Room Air 07/12/23 10:33 Documenting provider has reviewed patient's vital signs: yes Common normals: no apparent distress HENMT Common normals: oral mucous membranes not moist Chest Common normals: inspection of chest normal Respiratory Common normals: normal respiratory effort, no retractions and clear to auscult ation bilaterally Cardio Rate: tachycardic GI Rectal Exam - Female: deferred Extremity Common normals: normal to inspection Neuro Common normals: oriented x3 Results Labs Labs: Short CBC 07/12/23 Range/Units 10:45 WBC 21.7 H (4.0-11.0) 10^3/uL Hgb 13.7 (12.0-16.0) g/dL Hct 39.1 (36.0-48.0) % Plt Count 356 (150-450) 10^3/uL BMP 07/12/23 10:45 Sodium 132 L Potassium 3.2 L Chloride 97 L Carbon Dioxide 24.5 BUN 16.0 Creatinine 0.68 Glucose 125 H Calcium 9.4 Liver Function 07/12/23 Range/Units 10:45 Total Bilirubin 0.7 (0.2-1.0) mg/dL AST 10 L (15-37) U/L ALT 13 L (14-59) U/L Alkaline Phosphatase 81 (46-116) U/L Albumin 3.2 L (3.4-5.0) g/dL Assessment and Plan Assessment and Plan (1) Tubo-ovarian abscess: (2) Abdominal pain: (3) Acute postoperative abdominal pain: Plan Fever, leukocytosis, sinus tachycardia, respiratory distress, positive D-dimer secondary resulting in sepsis due to possible intra-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 Start IV antibiotics. IV fluid bolus. N.p.o. until evaluated by surgeon. Blood culture obtained in ER, will repeat blood cultures for fever Hyponatremia and hypokalemia likely secondary to dehydration-IV fluid bolus and maintenance fluids. Hypomagnesemia-supplement Recurrent diarrhea-progressive per patient-we will check stool studies
[2023-07-12 14:16] LABS: SARS-CoV-2 NAA NOT DETECTED (NOT DETECTE)
[2023-07-12 14:50] LABS: Lactate/Lactic Acid 0.7 mmol/L (0.4-2.0)
[2023-07-12 15:26] LABS: Bilirubin Urine NEGATIVE (NEGATIVE); Blood Urine MODERATE (NEGATIVE); Clarity Urine CLEAR (CLEAR); Color Urine YELLOW (YELLOW); Glucose Urine UA NEGATIVE (NEGATIVE); Ketones Urine TRACE mg/dL (NEGATIVE); Leukocyte Esterase Urine NEGATIVE (NEGATIVE); Nitrite Urine NEGATIVE (NEGATIVE); Protein Urine 30 mg/dL (NEG/TRACE); Specific Gravity Urine <=1.005 (1.005-1.025); Urobilinogen Urine 0.2 EU/dL (0.2-1.0); pH Urine 5.5 (5.0-9.0)
[2023-07-12 15:29] LABS: Urine Microscopic Indicated YES
[2023-07-12] MEDS: HYOSCYAMINE SULFATE 0.125 MG TAB.SUBL SL (15:33)
[2023-07-12 15:37] LABS: Amphetamine Screen Urine NEGATIVE (NEGATIVE); Barbiturates Screen Urine NEGATIVE (NEGATIVE); Benzodiazepines Screen Urine NEGATIVE (NEGATIVE); Buprenorphine Screen Urine NEGATIVE (NEGATIVE); Cannabinoid Screen Urine POSITIVE (NEGATIVE); Cocaine Screen Urine NEGATIVE (NEGATIVE); Methadone Screen Urine NEGATIVE (NEGATIVE); Methamphetamines Screen Urine NEGATIVE (NEGATIVE); Opiate Screen Urine POSITIVE (NEGATIVE); Oxycodone Screen Urine NEGATIVE (NEGATIVE); Phencyclidine Screen Urine NEGATIVE (NEGATIVE); Tricyclic Antidepressant Urine NEGATIVE (NEGATIVE)
[2023-07-12 15:57] LABS: WBC Urine 0-2 #/HPF (NONE SEEN)
[2023-07-12 15:58] LABS: Bacteria Urine TRACE #/HPF (NONE SEEN); Cast Seen? NONE SEEN #/LPF (NONE SEEN); Crystals Seen? None Seen #/HPF (None Seen); Mucus Urine NONE SEEN (NONE SEEN); Squamous Epithelial Cell Urine FEW #/LPF (NONE/RARE); Urine Culture Indicated NO
[2023-07-12] MEDS: HYDROMORPHONE HCL 1 MG/ML CARTRIDGE 0.5 MG IVP ×2 (16:10→20:42)
[2023-07-12] MEDS: DOXYCYCLINE HYCLATE 100 MG in 0.9 % SODIUM CHLORIDE 100 ML IV ×2 (16:12→21:54)
[2023-07-12] MEDS: LACTATED RINGER'S SOLUTION 1,000 ML 125 ML IV (16:13)
[2023-07-12] MEDS: ACETAMINOPHEN 500 MG TABLET 1000 MG PO (21:54)
[2023-07-12] MEDS: MAGNESIUM OXIDE 400 MG TABLET PO (21:54)
[2023-07-12] MEDS: POTASSIUM CHLORIDE 10 MEQ ER TABLET PO (21:54)
[2023-07-13] VITALS (14 sets, daily range): BP systolic 101–112; BP diastolic 64–70; PULSE 98–110; RESP 16–18; TEMP 36.6–37.7; O2SAT 94–99
[2023-07-13] MEDS: METRONIDAZOLE/SODIUM CHLORIDE 500 MG/100 ML PREMIX 100 MG IV ×4 (00:11→17:55)
[2023-07-13] MEDS: HYDROMORPHONE HCL 1 MG/ML CARTRIDGE 0.5 MG IVP ×2 (01:01→05:06)
[2023-07-13] MEDS: ONDANSETRON PF 4 MG/2 ML VIAL IV ×6 (01:02→21:37)
[2023-07-13] MEDS: LACTATED RINGER'S SOLUTION 1,000 ML 125 ML IV ×2 (03:12→15:24)
[2023-07-13 04:54] LABS: Basophils Percent Auto 0.2 % (0.2-2.0); Eosinophils Absolute Auto 0.1 10^3/uL (0.0-0.7); Eosinophils Percent Auto 0.4 % (0.9-7.0); Hematocrit 29.2 % (36.0-48.0); Hemoglobin 10.2 g/dL (12.0-16.0); Immature Granulocytes Abs Auto 0.06 10^3/uL (0.00-0.03); Immature Granulocytes Pct Auto 0.5 % (0.0-0.5); Lymphocytes Absolute Auto 0.6 10^3/uL (1.2-3.8); Lymphocytes Percent Auto 4.4 % (20.5-60.0); Mean Corpuscular HGB Conc 34.9 g/dL (29.9-35.2); Mean Corpuscular Hemoglobin 28.7 pg (26.7-34.0); Mean Corpuscular Volume 82.3 fL (81.0-99.0); Mean Platelet Volume 9.4 fL (9.5-13.5); Monocytes Absolute Auto 0.3 10^3/uL (0.3-0.8); Monocytes Percent Auto 2.6 % (1.7-12.0); Neutrophils Percent Auto 91.9 % (43.0-75.0); Platelet Count 272 10^3/uL (150-450); Red Blood Count 3.55 10^6/uL (4.20-5.40); Red Cell Distribution Width 13.2 % (11.0-15.0)
[2023-07-13 06:30] LABS: Anion Gap 13.3; BUN Creatinine Ratio 20.7; Calcium 7.9 mg/dL (8.5-10.1); Carbon Dioxide 20.7 mmol/L (21.0-32.0); Chloride 106 mmol/L (98-107); Estimated GFR (African America >60 (>=60); Estimated GFR (Non-African Ame >60 (>=60); Glucose 86 mg/dL (74-106); Magnesium 1.8 mg/dL (1.8-2.4); Sodium 137 mmol/L (136-145)
--- NOTE | 2023-07-13 07:00 | US_ITS ---
The [address] [address] Patient Name: EDUARDO ALCALA MRN: [id number] date: 1985 Sex: F Assigned Patient Location: [place] Current Patient Location: [place] Accession/Order Number: [id number] Exam Date: 07/13/2023 07:40 Report Date: 07/13/2023 08:55 At the request of: NICO GAMEZ Procedure: US pelvis transvaginal EXAMINATION: US pelvis transvaginal HISTORY: pain COMPARISON: 07/11/2023 FINDINGS: Transvaginal images The uterus is normal in size, contour and myometrial echotexture measuring 7.0 x 3.5 x 4.3 cm. No focal myometrial mass The endometrium measures 8.3 mm, normal. The right ovary measures 4.7 x 3.6 x 4.2 cm. Normal color and Doppler flow. Multiple cystic areas, Cystic area containing a fluid fluid level measuring 3.6 x 3.3 x 3.5 cm. Left ovary measures 7.1 x 5.0 x 6.1 cm. Asymmetrically enlarged. Cystic area measuring 5.0 x 4.3 x 4.8 cm. Small amount of free pelvic fluid US/US pelvis transvaginal IMPRESSION: 3.6 cm right and 5 cm left complex cystic structures with fluid fluid levels, consider hemorrhagic cysts Electronically authenticated by: BENNIE BROOKE Date: 07/13/2023 08:55
--- NOTE | 2023-07-13 08:02 | P.PN_ITS ---
Progress Note: Subjective Subjective Interval history: Patient states pain is a little better but overall feels the same Exam Constitutional Vital Signs, click to edit/add: Last Vital Signs Temp 97.8 F 07/13/23 05:29 Pulse 98 H 07/13/23 06:00 Resp 18 07/13/23 05:29 BP 112/70 07/13/23 05:29 Pulse Ox 97 07/13/23 06:00 O2 Del Method Room Air 07/13/23 05:29 Documenting provider has reviewed patient's vital signs: yes Common normals: no apparent distress HENMT Common normals: oral mucous membranes not moist Chest Common normals: inspection of chest normal Respiratory Common normals: normal respiratory effort, no retractions and clear to auscultation bilaterally Cardio Rate: tachycardic GI Common normals: soft to palpation Palpation: tender and rebound tenderness present Extremity Common normals: normal to inspection Neuro Common normals: oriented x3 Progress Note: Objective Labs Labs: Short CBC 07/12/23 07/13/23 Range/Units 10:45 03:56 WBC 21.7 H 13.0 H (4.0-11.0) 10^3/uL Hgb 13.7 10.2 L (12.0-16.0) g/dL Hct 39.1 29.2 L (36.0-48.0) % Plt Count 356 272 (150-450) 10^3/uL BMP 07/12/23 07/13/23 10:45 03:56 Sodium 132 L 137 Potassium 3.2 L 3.0 L Chloride 97 L 106 Carbon Dioxide 24.5 20.7 L BUN 16.0 12.0 Creatinine 0.68 0.58 Glucose 125 H 86 Calcium 9.4 7.9 L Liver Function 07/12/23 Range/Units 10:45 Total Bilirubin 0.7 (0.2-1.0) mg/dL AST 10 L (15-37) U/L ALT 13 L (14-59) U/L Alkaline Phosphatase 81 (46-116) U/L Albumin 3.2 L (3.4-5.0) g/dL Urine 07/12/23 Range/Units 15:15 Urine Color Yellow (YELLOW) Urine Clarity Clear (CLEAR) Urine pH 5.5 (5.0-9.0) Ur Specific [place] <=1.005 A (1.005-1.025) Urine Protein 30 A (NEG/TRACE) mg/dL Urine Glucose (UA) Negative (NEGATIVE) mg/dL Progress Note: A&P Assessment and Plan (1) Tubo-ovarian abscess: (2) Abdominal pain: (3) Acute postoperative abdominal pain: Plan Fever, leukocytosis, sinus tachycardia, respiratory distress, positive D-dimer secondary resulting in sepsis due to 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 White blood cell count is better today's will maintain current antibiotics, plan from D[employer]BLER HELPER has ultrasound today and then progress from there. Hyponatremia and hypokalemia likely secondary to dehydration-IV fluid bolus and maintenance fluids. Potassium lower today, will give supplemental IV potassium Hypomagnesemia-supplement Recurrent diarrhea-progressive per patient-we will check stool studies-pending Patient currently in observation status. With white blood cell count is improved still elevated, likely need for long-term antibiotics we will change patient to inpatient status depending on outcome of ultrasound
[2023-07-13] MEDS: HYOSCYAMINE SULFATE 0.125 MG TAB.SUBL SL ×3 (08:41→17:10)
[2023-07-13] MEDS: CEFTRIAXONE 1,000 MG in 0.9 % SODIUM CHLORIDE 50 ML 100 MG IV (08:41)
--- NOTE | 2023-07-13 08:48 | CM.NOTE ---
Rounds made with Dr. Macdonald, pt going for ultrasound this AM. Awiting Dr. Babcock plan of care for pt.
[2023-07-13] MEDS: HYDROMORPHONE HCL 0.5 MG/0.5 ML SYRINGE IV ×4 (09:09→22:18)
[2023-07-13] MEDS: DOXYCYCLINE HYCLATE 100 MG in 0.9 % SODIUM CHLORIDE 100 ML IV (09:13)
[2023-07-13] MEDS: POTASSIUM CHLORIDE 40 MEQ in 0.9 % SODIUM CHLORIDE 250 ML 67.5 MEQ IV (13:06)
[2023-07-13] MEDS: MAGNESIUM OXIDE 400 MG TABLET PO (22:16)
[2023-07-13] MEDS: POTASSIUM CHLORIDE 10 MEQ ER TABLET PO (22:16)
[2023-07-14] VITALS (58 sets, daily range): BP systolic 102–121; BP diastolic 61–76; PULSE 60–108; RESP 12–18; TEMP 36.7–37.2; O2SAT 90–99
[2023-07-14] MEDS: LACTATED RINGER'S SOLUTION 1,000 ML 125 ML IV ×2 (00:48→08:07)
[2023-07-14] MEDS: DOXYCYCLINE HYCLATE 100 MG in 0.9 % SODIUM CHLORIDE 100 ML IV ×3 (00:57→22:59)
[2023-07-14] MEDS: ONDANSETRON PF 4 MG/2 ML VIAL IV ×4 (02:09→20:07)
[2023-07-14] MEDS: METRONIDAZOLE/SODIUM CHLORIDE 500 MG/100 ML PREMIX 75 MG IV (02:10)
[2023-07-14] MEDS: HYDROMORPHONE HCL 0.5 MG/0.5 ML SYRINGE IV ×4 (02:28→20:07)
[2023-07-14 04:44] LABS: Basophils Percent Auto 0.1 % (0.2-2.0); Eosinophils Percent Auto 0.1 % (0.9-7.0); Hematocrit 29.4 % (36.0-48.0); Hemoglobin 10.2 g/dL (12.0-16.0); Immature Granulocytes Abs Auto 0.06 10^3/uL (0.00-0.03); Immature Granulocytes Pct Auto 0.4 % (0.0-0.5); Lymphocytes Absolute Auto 0.5 10^3/uL (1.2-3.8); Lymphocytes Percent Auto 3.6 % (20.5-60.0); Mean Corpuscular HGB Conc 34.7 g/dL (29.9-35.2); Mean Corpuscular Hemoglobin 28.6 pg (26.7-34.0); Mean Corpuscular Volume 82.4 fL (81.0-99.0); Mean Platelet Volume 9.1 fL (9.5-13.5); Monocytes Percent Auto 7.2 % (1.7-12.0); Neutrophils Absolute Auto 11.9 10^3/uL (1.4-6.5); Neutrophils Percent Auto 88.6 % (43.0-75.0); Platelet Count 318 10^3/uL (150-450); Red Blood Count 3.57 10^6/uL (4.20-5.40); Red Cell Distribution Width 13.7 % (11.0-15.0); White Blood Count 13.5 10^3/uL (4.0-11.0)
[2023-07-14 05:13] LABS: Anion Gap 16.6; BUN Creatinine Ratio 16.7; Calcium 7.8 mg/dL (8.5-10.1); Carbon Dioxide 18.6 mmol/L (21.0-32.0); Chloride 103 mmol/L (98-107); Estimated GFR (African America >60 (>=60); Estimated GFR (Non-African Ame >60 (>=60); Glucose 84 mg/dL (74-106); Magnesium 1.6 mg/dL (1.8-2.4); Potassium 3.2 mmol/L (3.5-5.1); Sodium 135 mmol/L (136-145)
[2023-07-14] MEDS: METRONIDAZOLE/SODIUM CHLORIDE 500 MG/100 ML PREMIX 100 MG IV ×2 (05:27→16:02)
[2023-07-14] MEDS: CEFTRIAXONE 1,000 MG in 0.9 % SODIUM CHLORIDE 50 ML 100 MG IV (08:06)
--- NOTE | 2023-07-14 08:08 | P.GYNCN_ITS ---
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 ) Narrative: Pt had presented to er on thursday the jun 09, pt had an hsg at 1600 on jun 08, hsg procedure was uneventful. pt had normal wbc on initial presentation to er, ct scan show possible fluid suspected to be from iv contrast, possible abscess vs cyst, pt was sent home with pain control and oral abx, pt presented thursday morning to er, will pelvic pain that has worsened. pt had wbc which was 21, tachycardia (120), no fever, ct scan was unchanged, pt was admitted under hospitalist Dr Macdonald, working dx of pid, pt was iv pain control and iv abx, pt symptoms slightly improved with wbc down to 13, ultrasound and ct scan reviewed with radiologist, radiologist suspects dilated tubes and does not suspect toa at this time. will continue to monitor pt for improvement, seen pt this morning stating not feeling better, wbc 13.5, pt complains of bloating states not feeling much better, positive bm, neg flatus, discussed options with patient, will take pt to or for dx lap possible bso, possible eliza, possible foe, possible removal and drainage of tuboovarian abscess, possible exploratory laparotomy, pt agrees with plan of care. cc:: CC: Armando Macdonald MD Review of Systems ROS Status of ROS 10 or more systems reviewed and unremarkable except as noted in history and below 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 [employer] Highest level of school completed/degree received: high school graduate Are you now , , , , never or living with a partner: Little interest or pleasure in doing things: not at all Feeling down, depressed, or hopeless: not at all Feel stressed/tense/nervous/anxious/difficulty sleeping: only a little Life stressor details: infertility issues Due to disability, difficulty making decisions: No Do you think of yourself as: straight/heterosexual Gender Identity: female Meds Home Medications and Allergies Home Medications Medication Instructions Recorded Confirmed Type letrozole 7.5 mg PO DAILY 07/09/23 07/12/23 History metformin 500 mg tablet 500 mg PO .QD@17 07/09/23 07/12/23 History doxycycline hyclate 100 mg capsule 100 mg PO BID #14 caps 07/11/23 07/12/23 Rx nabumetone 750 mg tablet 750 mg PO BID PRN pain #14 tabs 07/11/23 07/12/23 Rx Allergies Allergy/AdvReac Type Severity Reaction Status Date / Time No Known Drug Allergies Allergy Verified 07/12/23 13:55 Exam Constitutional Vital Signs, click to edit/add: Last Vital Signs Temp 98.9 F 07/14/23 05:31 Pulse 92 H 07/14/23 05:31 Resp 18 07/14/23 05:31 BP 112/69 07/14/23 05:31 Pulse Ox 97 07/14/23 05:57 O2 Del Method Room Air 07/14/23 05:57 Documenting provider has reviewed patient's vital signs: yes Common normals: no apparent distress Respiratory Common normals: normal respiratory effort and clear to auscultation bilaterally Cardio Common normals: regular rate and regular rhythm GI Common normals: Normal to inspection, nondistended, normoactive bowel sounds present (slightly disteneded, no active bowel sounds) Palpation: tender (slight tenderness, no acute abdomen) Details: LLQ Percussion: normal to percussion Extremity Common normals: no clubbing, cyanosis or edema Results Labs Labs: Short CBC 07/14/23 Range/Units 03:56 WBC 13.5 H (4.0-11.0) 10^3/uL Hgb 10.2 L (12.0-16.0) g/dL Hct 29.4 L (36.0-48.0) % Plt Count 318 (150-450) 10^3/uL BMP 07/14/23 03:56 Sodium 135 L Potassium 3.2 L Chloride 103 Carbon Dioxide 18.6 L BUN 9.0 Creatinine 0.54 L Glucose 84 Calcium 7.8 L Assessment and Plan Assessment and Plan (1) Tubo-ovarian abscess: (2) Abdominal pain: (3) Pelvic inflammatory disease: Assessment and Plan: ultrasound and labs reviewed, discussed case with hospitalist and radiologist, will take patient to or for dx lap with possible bso, eliza, foe, removal and drainage of abscess, possible exploratory laparotomy, mmc reviewed, procedure reviewed in detail, alternatives given. (4) Pelvic pain:
--- NOTE | 2023-07-14 08:13 | CM.NOTE ---
Rounds made with Dr. Macdonald, no discharge today. Dr. Macdonald spoke with Dr. Babcock and plan is to take pt to OR today around noon.
--- NOTE | 2023-07-14 09:20 | P.PN_ITS ---
Progress Note: Subjective Subjective Interval history: Patient has not improved at all Exam Constitutional Vital Signs, click to edit/add: Last Vital Signs Temp 98.9 F 07/14/23 05:31 Pulse 92 H 07/14/23 05:31 Resp 18 07/14/23 05:31 BP 112/69 07/14/23 05:31 Pulse Ox 97 07/14/23 05:57 O2 Del Method Room Air 07/14/23 05:57 Documenting provider has reviewed patient's vital signs: yes Common normals: no apparent distress HENMT Common normals: oral mucous membranes not moist Chest Common normals: inspection of chest normal Respiratory Common normals: normal respiratory effort, no retractions and clear to auscultation bilaterally Cardio Rate: tachycardic GI Common normals: soft to palpation Palpation: tender and rebound tenderness present Extremity Common normals: normal to inspection Neuro Common normals: oriented x3 Progress Note: Objective Labs Labs: Short CBC 07/14/23 Range/Units 03:56 WBC 13.5 H (4.0-11.0) 10^3/uL Hgb 10.2 L (12.0-16.0) g/dL Hct 29.4 L (36.0-48.0) % Plt Count 318 (150-450) 10^3/uL BMP 07/14/23 03:56 Sodium 135 L Potassium 3.2 L Chloride 103 Carbon Dioxide 18.6 L BUN 9.0 Creatinine 0.54 L Glucose 84 Calcium 7.8 L Progress Note: A&P Assessment and Plan (1) Tubo-ovarian abscess: (2) Abdominal pain: (3) Pelvic inflammatory disease: (4) Pelvic pain: Plan Fever, leukocytosis, sinus tachycardia, respiratory distress, positive D-dimer secondary resulting in sepsis due to possible intra-abdominal abscess from re cent [employer] procedure. White blood cell count slightly elevated today discussed with Dr. Babcock Hyponatremia and hypokalemia likely secondary to dehydration-IV fluid bolus and maintenance fluids. Potassium lower today, will give supplemental IV potassium Hypomagnesemia-supplement Recurrent diarrhea-progressive per patient-having loose stools again now so we will check stool studies We will change to inpatient status with pending surgery today likely at least 1 if not 2 more days of IV antibiotics
[2023-07-14] MEDS: PANTOPRAZOLE SODIUM 40 MG VIAL IV (10:12)
[2023-07-14 14:12] LABS: Adenovirus F 40/41 NOT DETECTED (NOT DETECTE); Astrovirus NOT DETECTED (NOT DETECTE); Campylobacter NOT DETECTED (NOT DETECTE); Cryptosporidium NOT DETECTED (NOT DETECTE); Cyclospora cayetanensis NOT DETECTED (NOT DETECTE); Entamoeba histolytica NOT DETECTED (NOT DETECTE); Enteroaggregative E.coli NOT DETECTED (NOT DETECTE); Enteropathogenic E.coli NOT DETECTED (NOT DETECTE); Enterotoxigenic E. coli NOT DETECTED (NOT DETECTE); Giardia lamblia NOT DETECTED (NOT DETECTE); Norovirus GI/GII NOT DETECTED (NOT DETECTE); Plesiomonas shigelloides NOT DETECTED (NOT DETECTE); Rotavirus A NOT DETECTED (NOT DETECTE); Salmonella NOT DETECTED (NOT DETECTE); Sapovirus NOT DETECTED (NOT DETECTE); Shiga-like toxin-producing E.C NOT DETECTED (NOT DETECTE); Shigella/Enteroinvasive E.coli NOT DETECTED (NOT DETECTE); Vibrio NOT DETECTED (NOT DETECTE); Vibrio cholerae NOT DETECTED (NOT DETECTE); Yersinia enterocolitica NOT DETECTED (NOT DETECTE)
[2023-07-14] MEDS: LACTATED RINGER'S SOLUTION 1,000 ML 50 ML IV (15:01)
[2023-07-14 16:19] LABS: Occult Blood Negative
[2023-07-14] MEDS: POTASSIUM CHLORIDE 10 MEQ ER TABLET PO (22:45)
[2023-07-14] MEDS: MAGNESIUM OXIDE 400 MG TABLET PO (22:45)
[2023-07-15] VITALS (9 sets, daily range): BP systolic 108–119; BP diastolic 65–71; PULSE 62–82; RESP 16; TEMP 36.8–37; O2SAT 95–98
[2023-07-15] MEDS: ONDANSETRON PF 4 MG/2 ML VIAL IV ×4 (00:12→16:06)
[2023-07-15] MEDS: METRONIDAZOLE/SODIUM CHLORIDE 500 MG/100 ML PREMIX 100 MG IV ×3 (00:12→10:57)
[2023-07-15] MEDS: HYDROMORPHONE HCL 0.5 MG/0.5 ML SYRINGE IV ×3 (00:13→08:47)
[2023-07-15] MEDS: LACTATED RINGER'S SOLUTION 1,000 ML 125 ML IV ×2 (00:13→08:50)
[2023-07-15 05:33] LABS: Basophils Percent Auto 0.2 % (0.2-2.0); Hematocrit 34.9 % (36.0-48.0); Immature Granulocytes Pct Auto 0.9 % (0.0-0.5); Lymphocytes Absolute Auto 0.5 10^3/uL (1.2-3.8); Lymphocytes Percent Auto 4.9 % (20.5-60.0); Mean Corpuscular HGB Conc 31.5 g/dL (29.9-35.2); Mean Corpuscular Hemoglobin 28.1 pg (26.7-34.0); Mean Platelet Volume 8.9 fL (9.5-13.5); Monocytes Absolute Auto 0.7 10^3/uL (0.3-0.8); Monocytes Percent Auto 5.9 % (1.7-12.0); Neutrophils Absolute Auto 9.8 10^3/uL (1.4-6.5); Neutrophils Percent Auto 88.1 % (43.0-75.0); Platelet Count 355 10^3/uL (150-450); Red Blood Count 3.92 10^6/uL (4.20-5.40); Red Cell Distribution Width 14.3 % (11.0-15.0); White Blood Count 11.1 10^3/uL (4.0-11.0)
[2023-07-15 05:47] LABS: Anion Gap 16.6; Calcium 7.8 mg/dL (8.5-10.1); Carbon Dioxide 19.1 mmol/L (21.0-32.0); Chloride 105 mmol/L (98-107); Estimated GFR (African America >60 (>=60); Estimated GFR (Non-African Ame >60 (>=60); Glucose 110 mg/dL (74-106); Magnesium 1.7 mg/dL (1.8-2.4); Potassium 3.7 mmol/L (3.5-5.1); Sodium 137 mmol/L (136-145)
[2023-07-15] MEDS: POTASSIUM CHLORIDE 10 MEQ ER TABLET PO (08:46)
[2023-07-15] MEDS: MAGNESIUM OXIDE 400 MG TABLET PO (08:46)
[2023-07-15] MEDS: HYOSCYAMINE SULFATE 0.125 MG TAB.SUBL SL ×2 (08:46→10:57)
[2023-07-15] MEDS: PANTOPRAZOLE SODIUM 40 MG VIAL IV (08:46)
[2023-07-15] MEDS: KETOROLAC TROMETHAMINE 30 MG/ML VIAL IVP (08:47)
--- NOTE | 2023-07-15 08:49 | P.DS_ITS ---
DS: Providers Provider Date of admission: 07/14/23 09:40 Primary care physician: Non-Staff Physician, Consults: 07/12/23 13:12 Consult to Hospitalist, SKILLED NURSING PROFESSIONAL Routine Consulting Provider: Osman Babcock Reason for consultation: left ovarian abscess Has provider been notified: Yes 07/12/23 13:52 Consult to OBGYN Routine Consulting Provider: Osman Babcock Reason For Exam: Reason for consultation: possible abscess Has provider been notified: Yes DS: Diagnosis Discharge Diagnosis (1) Tubo-ovarian abscess: (2) Abdominal pain: (3) Pelvic inflammatory disease: (4) Pelvic pain: Plan Fever, leukocytosis, sinus tachycardia, respiratory distress, positive D-dimer secondary resulting in sepsis due to possible intra-abdominal abscess from recent [employer] procedure. Hyponatremia and hypokalemia likely secondary to dehydration Hypomagnesemia Recurrent diarrhea DS: Summary Hospital Course Hospital Course: Patient presented to the emergency room with increasing abdominal pain. Evaluation found to have leukocytosis and fever and possible intra-abdominal abscesses. She had a recent HSG. Patient is admitted and placed on IV antibiotics her pain is somewhat improved over the first 2 days. But not significantly. Her white blood cell count was improving but again on the day of her ultimate surgery was pretty much the same as a previous day and pain was persisting. Patient was taken to the operating room. See op report. Following day patient was much improved. She will be discharged home in improving condition. Medications see list. Follow-up with [employer] [facility] within the next week. Or per their protocol Time Spent with Patient Time attestation: Total time spent providing and/or coordinating discharge services: Exam Constitutional Vital Signs, click to edit/add: Last Vital Signs Temp 98.3 F 07/15/23 06:00 Pulse 82 07/15/23 06:00 Resp 16 07/15/23 06:00 BP 108/65 07/15/23 06:00 Pulse Ox 98 07/15/23 08:00 O2 Del Method Room Air 07/15/23 06:00 Documenting provider has reviewed patient's vital signs: yes Common normals: no apparent distress HENMT Common normals: oral mucous membranes not moist Chest Common normals: inspection of chest normal Respiratory Common normals: normal respiratory effort, no retractions and clear to auscu ltation bilaterally Cardio Rate: tachycardic GI Common normals: soft to palpation Palpation: tender and rebound tenderness present Extremity Common normals: normal to inspection Neuro Common normals: oriented x3 DS: Data Data Completed and Pending Labs on day of discharge: Labs from last 24 hours 07/15/23 07/14/23 04:03 10:30 WBC 11.1 H RBC 3.92 L Hgb 11.0 L Hct 34.9 L MCV 89.0 MCH 28.1 MCHC 31.5 RDW 14.3 Plt Count 355 MPV 8.9 L Neut % (Auto) 88.1 H Lymph % (Auto) 4.9 L [place] % (Auto) 5.9 Eos % (Auto) 0.0 L Baso % (Auto) 0.2 Neut # (Auto) 9.8 H Lymph # (Auto) 0.5 L [place] # (Auto) 0.7 Eos # (Auto) 0.0 Baso # (Auto) 0.0 Abs Immat Gran (auto) 0.10 H Imm/Tot Granulo (auto) 0.9 H Sodium 137 Potassium 3.7 Chloride 105 Carbon Dioxide 19.1 L Anion Gap 16.6 BUN 9.0 Creatinine 0.45 L Est GFR ( Amer) >60 Est GFR (Non-Af Amer) >60 BUN/Creatinine Ratio 20.0 Glucose 110 H Calcium 7.8 L Magnesium 1.7 L Stool Occult Blood Negative Stl C. cayetanensis PCR Not detected Stool Rotavirus (PCR) Not detected Stool Adenovirus (PCR) Not detected Stool Astrovirus (PCR) Not detected Stool Campylobacter PCR Not detected Stool Cryptosporidium PCR Not detected St Sh/Enteroin Ecoli PCR Not detected Stl Enterotoxigenic E PCR Not detected Stool EPEC (PCR) Not detected Stl E. histolytica PCR Not detected Stool Giardia Lamblia PCR Not detected Stl P. shigelloides PCR Not detected Stool Salmonella PCR Not detected Stool Sapovirus (PCR) Not detected Stl Shiga-like Tx [address] Y.enterocolitica PCR Not detected Stl Vibrio cholerae PCR Not detected Stl Enteroaggr Ecoli PCR Not detected Stl Norovirus GI/GII PCR Not detected C. difficile Toxin A&B Not detected Vibrio Culture Not detected Discharge Plan Discharge Disposition: Home, Self-Care Condition: Good Discharge Medications: New ibuprofen 800 mg tablet 800 mg PO Q8H PRN (Reason: pain) 14 Days Qty: 40 0RF hydrocodone-acetaminophen 5-325 mg tablet 1 tab PO Q4H PRN (Reason: pain) 4 Days Qty: 16 0RF doxycycline hyclate 100 mg capsule 100 mg PO BID 14 Days Qty: 28 0RF metronidazole 500 mg tablet 500 mg PO BID 14 Days Qty: 28 0RF ondansetron 4 mg film 4 mg PO Q6H PRN (Reason: nausea) Qty: 30 11RF Continued doxycycline hyclate 100 mg capsule 100 mg PO BID Qty: 14 0RF Discontinued nabumetone 750 mg tablet 750 mg PO BID PRN (Reason: pain) Qty: 14 0RF letrozole 7.5 mg PO DAILY metformin 500 mg tablet 500 mg PO .QD@17 Rx Instructions: Metformin Extended Release Activity: return to work once cleared by your PCP/specialist and resume usual activities as tolerated Diet: advance to your usual diet Patient Instructions: Salpingectomy (DC), Exploratory Laparoscopy (DC) Forms: Portal Instructions Follow Up Appointments: Follow up with Dr. Babcock Thursday07/22/2023 @ 3:00pm. [phone]
[2023-07-15] MEDS: CEFTRIAXONE 1,000 MG in 0.9 % SODIUM CHLORIDE 50 ML 100 MG IV (09:00)
--- NOTE | 2023-07-15 09:16 | CM.NOTE ---
Rounds made with Dr. Macdonald, will discuss plan of care with Dr. Babcock. Pt can increase diet and change to P.O for pain medications.
[2023-07-15] MEDS: DOXYCYCLINE HYCLATE 100 MG in 0.9 % SODIUM CHLORIDE 100 ML IV (09:46)
--- NOTE | 2023-07-15 13:18 | P.GYNPN_ITS ---
HELPER COORDINATOR - PN: Subj Post-Op Interval history: Patient feeling better, denies bm, denies n.v.d.f.c. denies lightheadedness or dizziness Subjective: patient reports feeling better Exam Constitutional Vital Signs, click to edit/add: Last Vital Signs Temp 98.3 F 07/15/23 06:00 Pulse 82 07/15/23 06:00 Resp 16 07/15/23 06:00 BP 108/65 07/15/23 06:00 Pulse Ox 97 07/15/23 10:44 O2 Del Method Room Air 07/15/23 10:44 Documenting provider has reviewed patient's vital signs: yes Common normals: no apparent distress Respiratory Common normals: normal respiratory effort and clear to auscultation bilaterally Cardio Common normals: regular rate and regular rhythm GI Common normals: Normal to inspection, nondistended, normoactive bowel sounds pre sent Extremity Common normals: no clubbing, cyanosis or edema and no calf tenderness Results Labs Labs: Short CBC 07/15/23 Range/Units 04:03 WBC 11.1 H (4.0-11.0) 10^3/uL Hgb 11.0 L (12.0-16.0) g/dL Hct 34.9 L (36.0-48.0) % Plt Count 355 (150-450) 10^3/uL BMP 07/15/23 04:03 Sodium 137 Potassium 3.7 Chloride 105 Carbon Dioxide 19.1 L BUN 9.0 Creatinine 0.45 L Glucose 110 H Calcium 7.8 L HELPER COORDINATOR - A/P Assessment and Plan (1) Tubo-ovarian abscess: (2) Abdominal pain: (3) Pelvic inflammatory disease: (4) Pelvic pain: Postoperative Procedures: Procedures Operation Date: 07/14/23 12:00 Actual Procedure Side Surgeon p Diagnostic Laparoscopy with Lysis Of Adhesions, Bilateral Salpingectomy Not Applicable Osman Babcock DO Postoperative day: 1 Postoperative status HELPER COORDINATOR: doing well Post-operative plan HELPER COORDINATOR: routine post-op care and other (advance diet slowly, may consider discharge later today, rx on chart, will call after office and discuss pt condition with nurse) Fall Risk Details Sloan fall scale risk level: Low Fall Risk Current medications: Current Medications Acetaminophen (Acetaminophen 500 Mg Tablet) 1,000 mg PO Q6H PRN PRN Reason: Pain Scale 4-6 Last Admin: 07/12/23 21:54 Dose: 1,000 mg Hydralazine HCl (Hydralazine Hcl 20 Mg/Ml Vial) 10 mg IVP Q4H PRN PRN Reason: Hypertension Hydromorphone HCl (Hydromorphone Hcl 0.5 Mg/0.5 Ml Syringe) 0.5 mg IV Q4H PRN PRN Reason: Pain Scale 7-10 Last Admin: 07/15/23 08:47 Dose: 0.5 mg Hyoscyamine (Hyoscyamine Sulfate 0.125 Mg Tab.Subl) 0.125 mg SL AC [facility] Last Admin: 07/15/23 10:57 Dose: 0.125 mg Lactated Ringer's (Lactated Ringers) 1,000 mls @ 125 mls/hr IV .Q8H [facility] Last Admin: 07/15/23 08:50 Dose: 125 mls/hr Ceftriaxone Sodium 1,000 mg/ (Sodium Chloride) 50 mls @ 100 mls/hr IV Q24H [facility] Last Infusion: 07/15/23 09:40 Dose: Infused Metronidazole (Flagyl 500 Mg/100 Ml Premix) 500 mg in 100 mls @ 100 mls/hr IV Q6H [facility] Last Infusion: 07/15/23 12:27 Dose: Infused Potassium Chloride 40 meq/ (Sodium Chloride) 270 mls @ 67.5 mls/hr IV Q6H PRN PRN Reason: HYPOkalemia Last Infusion: 07/13/23 17:13 Dose: Infused Doxycycline Hyclate 100 mg/ (Sodium Chloride) 100 mls @ 100 mls/hr IV BID@1000,2200 [facility] Last Infusion: 07/15/23 10:53 Dose: Infused Lactated Ringer's (Lactated Ringers) 1,000 mls @ 50 mls/hr IV .Q20H [facility] Last Admin: 07/14/23 16:01 Dose: Not Given Ketorolac Tromethamine (Ketorolac Tromethamine 30 Mg/Ml Vial) 30 mg IVP Q6H PRN PRN Reason: Pain Scale 7-10 Last Admin: 07/15/23 08:47 Dose: 30 mg Lactobacillus Acidophilus (L. Acidophilus/L.Bulgaricus 1 Packet Gran.Pack) 1 packet PO BID [facility] Last Admin: 07/15/23 08:48 Dose: Not Given Magnesium (Magnesium Oxide 400 Mg Tablet) 400 mg PO BID [facility] Last Admin: 07/15/23 08:46 Dose: 400 mg Nicotine (Nicotine 21 Mg Patch) 1 patch TD Q24H PRN PRN Reason: Nicotine Cravings Ondansetron HCl (Ondansetron Pf 4 Mg/2 Ml Vial) 4 mg IV Q4H PRN PRN Reason: Nausea Last Admin: 07/15/23 08:47 Dose: 4 mg Pantoprazole Sodium (Pantoprazole Sodium 40 Mg Vial) 40 mg IV QD [facility] Last Admin: 07/15/23 08:46 Dose: 40 mg Potassium Chloride (Potassium Chloride 10 Meq Er Tablet) 10 meq PO BID [facility] Last Admin: 07/15/23 08:46 Dose: 10 meq Time Spent With Patient Time: Total time spent is greater than 50% in coordination of care (as documented) at patient's floor/unit and/or counseling patient: Time with patient: 25 - 35 minutes
[2023-07-15] MEDS: IBUPROFEN 400 MG TABLET 800 MG PO (16:06)
--- NOTE | 2023-07-16 13:09 | P.ON_ITS ---
Brief Operative Note Date of procedure: 07/16/23 Pre-op diagnosis: pid, tubular dysfunction, hydrosalpingx vs tuboovarian abcess, leukocytosis Post-op diagnosis: same as pre-op Procedure: NAME OF PROCEDURE: bilateral laparoscopic salpingectomy, extensive lysis of adh esions bilateral hydrosalpingx, extensive adhesions of tubes to pelvic wall PROCEDURE: The patient was taken back to the Operating Room where she was given general a nesthesia without difficulty. She was then prepped and draped in the normal sterile fashion after being placed in a dorsal lithotomy position. A wet sponge stick was placed into the patient's vagina. Attention was then turned to the patient's abdomen, where a scalpel was used to make a small infraumbilical incision. The S retractors were then used to dissect the underlying layers until the fascia could be seen. The fascia was then grasped with Luis clamps and tented up. A knife was then used to make a small incision to the fascia. The muscle was identified, at that time two sutures of #0 Vicryl on a GI needle was then used and placed through the fascia. the peritoneum was then identified and entered bluntly. The 10-4 Mohan was then placed into the patient's abdomen. This was confirmed with direct visualization of the bowel, using the laparoscope. The patient's abdomen was then insufflated using approximately 4 liters of CO2 gas. Survey of the patient's abdomen demonstrated ovaries were normal appearing uterus, extensive adhesions of tubes to pelvic side wall with extensive hydrosalpingx, extensive pus seen in the lt tube, normal appearing ovaries. A second and third rt and lt lateral ports which were 5 and 8 mm in size, was then placed after the skin incision was made under direct visualization . The patient's tube on the patient's right side was identified and tented up using a grasper, the ligasure apparatus was then used to come across the mesosalpingx from the fimbriated end to the insertion site at the uterus, the tube was then amputated and removed in its entirety. This was done on the contralateral side. The tubes were the removed from the patients abdomen using endocatch, copius amount of irrigation with cleocin used to irrigate. Excellent hemostasis was noted. The lateral ports were then moved under direct visualization with excellent hemostasis. All instruments were removed from the patient's abdomen. The fascia was closed using the #0 Vicryl on GI needle. The skin was closed using 4-0 Vicryl subcuticularly. All instruments were removed from the patient's vagina as well. The patient was taken out of the dorsal lithotomy position and placed in the supine position and taken to recovery in stable condition. Sponge, lap and needle counts were correct x2. Anesthesia: MARIA DEL CARMENA Surgeon: Osman Babcock Systems Qa Analyst: Angela Saini Estimated blood loss (mL): 10 Pathology: other (tubes and fluid for culture and sensitivity) Condition: stable Disposition: PACU
--- NOTE | 2023-07-17 14:40 | CM.DCFOLLOWU ---
Person spoke with: patient How are you feeling? alright How is your pain? still painful, but getting it through it Did you understand your discharge instructions? yes Do you have any questions about your discharge instructions? no Were you given any prescriptions at discharge? yes Were you able to get your prescriptions filled? yes Do you understand how to take your medications as ordered? yes Do you have any questions about your follow up appointment and do you plan to keep your follow up appointment? no questions, follow up is 07/22/23 Is there anything else that you would like to discuss? asked if she should go back to work Thursday or take it easy as she is in pain. Recommended calling Dr. Babcock's office to see what is recommended Questions/Comments/Concerns/Other:
== END 2023-07-15 18:34 | disposition home or self-care (01) | DRG 711 ==
LOC: ER 13:21 → MS 13:34
PROVIDERS: Obstetrics & Gynecology; Admitting Provider Family Medicine; Emergency Provider Emergency Medicine; Visit Provider Family Medicine
PROC: 0UT74ZZ Resection of Bilateral Fallopian Tubes, Percutaneous Endoscopic Approach (ICD-10-PCS; principal; 2023-07-14 12:00)
DX: T81.44XA Sepsis following a procedure, initial encounter (principal); Y83.8 Other surgical procedures as the cause of abnormal reaction of the patient, or of later complication, without mention of misadventure at the time of the procedure; N70.93 Salpingitis and oophoritis, unspecified; E87.1 Hypo-osmolality and hyponatremia; E83.42 Hypomagnesemia; E86.0 Dehydration; R19.7 Diarrhea, unspecified; Z79.84 Long term (current) use of oral hypoglycemic drugs; Z79.899 Other long term (current) drug therapy; Z87.891 Personal history of nicotine dependence; N70.11 Chronic salpingitis; N73.6 Female pelvic peritoneal adhesions (postinfective); N73.9 Female pelvic inflammatory disease, unspecified; R10.9 Unspecified abdominal pain; G89.18 Other acute postprocedural pain; N83.202 Unspecified ovarian cyst, left side
CPT/HCPCS: 36415; 71275; 74176; 74177; 76830; 80048; 80053; 80307; 81001; 83605; 83735; 84484; 84703; 85025; 85027; 85378; 85610; 87040; 87070; 87086; 87150; 87186; 87493; 87507; 87635; 87811; 88305; 88341; 88342; 93005; 93975; 94667; 94668; 94761; 96361; 96365; 96366; 96367; 96368; 96375; 96376; 99285; 99999; G0328; G0378; J0744; J1170; J1836; J2405; J2704; J3480; Q9967; U0003

== ENCOUNTER 2023-09-25 12:12 | Emergency (ER) | payer OTHER, SELFPAY ==
[2023-09-25 12:17] VITALS: BP 128/75; PULSE 68; RESP 16; TEMP 36.8; O2SAT 100; BMI 20.2
[2023-09-25] MEDS: 0.9 % SODIUM CHLORIDE 1,000 ML 999 ML IV (12:52)
[2023-09-25 12:57] LABS: Basophils Percent Auto 0.5 % (0.2-2.0); Eosinophils Absolute Auto 0.1 10^3/uL (0.0-0.7); Eosinophils Percent Auto 1.1 % (0.9-7.0); Hematocrit 40.2 % (36.0-48.0); Hemoglobin 12.8 g/dL (12.0-16.0); Immature Granulocytes Abs Auto 0.02 10^3/uL (0.00-0.03); Immature Granulocytes Pct Auto 0.2 % (0.0-0.5); Lymphocytes Absolute Auto 2.1 10^3/uL (1.2-3.8); Lymphocytes Percent Auto 23.8 % (20.5-60.0); Mean Corpuscular HGB Conc 31.8 g/dL (29.9-35.2); Mean Corpuscular Volume 84.8 fL (81.0-99.0); Mean Platelet Volume 8.5 fL (9.5-13.5); Monocytes Absolute Auto 0.6 10^3/uL (0.3-0.8); Monocytes Percent Auto 6.6 % (1.7-12.0); Neutrophils Absolute Auto 5.9 10^3/uL (1.4-6.5); Neutrophils Percent Auto 67.8 % (43.0-75.0); Platelet Count 330 10^3/uL (150-450); Red Blood Count 4.74 10^6/uL (4.20-5.40); Red Cell Distribution Width 13.2 % (11.0-15.0); White Blood Count 8.8 10^3/uL (4.0-11.0)
[2023-09-25 12:58] LABS: Bilirubin Urine NEGATIVE (NEGATIVE); Blood Urine NEGATIVE (NEGATIVE); Clarity Urine CLEAR (CLEAR); Color Urine LT. YELLOW (YELLOW); Glucose Urine UA NEGATIVE (NEGATIVE); Ketones Urine NEGATIVE (NEGATIVE); Leukocyte Esterase Urine NEGATIVE (NEGATIVE); Nitrite Urine NEGATIVE (NEGATIVE); Protein Urine NEGATIVE (NEG/TRACE); Specific Gravity Urine 1.015 (1.005-1.025); Urobilinogen Urine 0.2 EU/dL (0.2-1.0)
[2023-09-25 12:59] LABS: Urine Microscopic Indicated NO
[2023-09-25 13:35] LABS: Alanine Aminotransferase 12 U/L (14-59); Albumin Level 3.6 g/dL (3.4-5.0); Alkaline Phosphatase 73 U/L (46-116); Anion Gap 10.2; Aspartate Amino Transferase 7 U/L (15-37); BUN Creatinine Ratio 29.6; Bilirubin Total 0.4 mg/dL (0.2-1.0); Calcium 8.7 mg/dL (8.5-10.1); Carbon Dioxide 27.5 mmol/L (21.0-32.0); Chloride 103 mmol/L (98-107); Estimated GFR (African America >60 (>=60); Estimated GFR (Non-African Ame >60 (>=60); Globulin 3.5 g/dL; Glucose 91 mg/dL (74-106); Potassium 3.7 mmol/L (3.5-5.1); Sodium 137 mmol/L (136-145); Total Protein 7.1 g/dL (6.4-8.2)
[2023-09-25 13:40] LABS: Lactate/Lactic Acid 1.2 mmol/L (0.4-2.0)
--- NOTE | 2023-09-25 15:07 | ED.ABDPAIN1 ---
HPI - Abdominal Pain General Chief Complaint: Abdominal Pain Stated Complaint: ABDOMINAL PAIN Time Seen by Provider: 09/25/23 12:25 Source: patient Mode of arrival: walk-in History of Present Illness HPI narrative: patient's here for ongoing abdominal pain. Several weeks ago she had a laparoscopic surgery by Dr. Babcock at this institution and they removed her fallopian tubes because of infectious process. Since that time she just hasn't really felt very good. She is not running a high spiking fever or rigors or shaking chills but runs a low grade 100 degree fever. She has some nausea. No diarrhea. No burning with urination no frequency urgency or hesitancy. No back or flank pain. She is been one other Emergency Room and they told her that she had gas . She just thinks that there might be something else going on she wanted to rule out any ongoing infections process. Related Data Home Medications Medication Instructions Recorded Confirmed No Known Home Medications 09/25/23 09/25/23 Allergies Allergy/AdvReac Type Severity Reaction Status Date / Time No Known Drug Allergies Allergy Verified 07/12/23 13:55 [facility] Medical History (Updated 09/25/23 @ 15:10 by Joe North MD) Abdominal pain ?R10.9 - Unspecified abdominal pain (ICD-10) Acute postoperative abdominal pain ?G89.18 - Other acute postprocedural pain (ICD-10) ?R10.9 - Unspecified abdominal pain (ICD-10) Infertility Irregular menstrual cycle ?N92.6 - Irregular menstruation, unspecified (ICD-10) Pelvic inflammatory disease ?N73.9 - Female pelvic inflammatory disease, unspecified (ICD-10) Tubo-ovarian abscess ?N70.93 - Salpingitis and oophoritis, unspecified (ICD-10) Surgical History Family History Brother Family history of cancer Social History Within the past year, how often did you have a drink containing alcohol: monthly or less Within the past year, how often did you have six or more drinks on one occasion: never Smoking status: Former smoker Non-prescribed substance use: cannabis (any form) Non-prescribed substance use details: not now but in past 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 Highest level of school completed/degree received: high school graduate Are you now , , , , never or living with a partner: Little interest or pleasure in doing things: not at all Feeling down, depressed, or hopeless: not at all Feel stressed/tense/nervous/anxious/difficulty sleeping: only a little Life stressor details: infertility issues Due to disability, difficulty making decisions: No Do you think of yourself as: straight/heterosexual Gender Identity: female Exam Narrative Exam Narrative: very pleasant active awake alert afebrile vital signs are stable. HEENT shows no of the sclera icterus, pallor or anemia. 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 Examination abdomen shows no peritoneal findings no rebound rigidity guarding or peritoneal findings. No pain at McBurney's point. Heredia's sign is negative, incidentally she says she's had a gallbladder attack in the past but this is more of a dull ongoing discomfort than a severe pain. Trunk torso or extremities are otherwise normal. Constitutional Vital Signs, click to edit/add: Last Vital Signs Temp 98.2 F 09/25/23 12:17 Pulse 68 09/25/23 12:17 Resp 16 09/25/23 12:17 BP 128/75 09/25/23 12:17 Pulse Ox 100 09/25/23 12:17 O2 Del Method Room Air 09/25/23 12:56 Course Vital Signs Vital signs: Vital Signs Temperature 98.2 F 09/25/23 12:17 Pulse Rate 68 09/25/23 12:17 Respiratory Rate 16 09/25/23 12:17 Blood Pressure 128/75 09/25/23 12:17 Pulse Oximetry 100 09/25/23 12:17 Oxygen Delivery Method Room Air 09/25/23 12:17 Temperature 98.2 F 09/25/23 12:17 Pulse Rate 68 09/25/23 12:17 Respiratory Rate 16 09/25/23 12:17 Blood Pressure 128/75 09/25/23 12:17 Pulse Oximetry 100 09/25/23 12:17 Oxygen Delivery Method Room Air 09/25/23 12:56 MDM - Abdominal Pain MDM Narrative Medical decision making narrative: laboratory testing shows a modest elevation of her lipase otherwise her white blood cell count liver function tests are all normal. I reviewed her previous CT scan and did not show any pathology in the spleen or the liver but she did have some gallbladder sludge. Today Heredia sign is negative and her white count LFTs total bilirubin is all normal. I think her findings are most consistent with a mild pancreatitis. She does not use alcoholic products. The gallbladder may be playing a role especially since she has a strong family history of biliary dysfunction. She would prefer to go home. I think we can give that a try, analgesics clear fluids for forty-eight hours antibiotics. Follow up with either Dr. Babcock or primary care doctor should that she is transitioning to or return to the emergency room she is satisfied with those recommendations Lab Data Labs: Lab Results 09/25/23 09/25/23 Range/Units 12:45 12:50 WBC 8.8 (4.0-11.0) 10^3/uL RBC 4.74 (4.20-5.40) 10^6/uL Hgb 12.8 (12.0-16.0) g/dL Hct 40.2 (36.0-48.0) % MCV 84.8 (81.0-99.0) fL MCH 27.0 (26.7-34.0) pg MCHC 31.8 (29.9-35.2) g/dL RDW 13.2 (11.0-15.0) % Plt Count 330 (150-450) 10^3/uL MPV 8.5 L (9.5-13.5) fL Neut % (Auto) 67.8 (43.0-75.0) % Lymph % (Auto) 23.8 (20.5-60.0) % [place] % (Auto) 6.6 (1.7-12.0) % Eos % (Auto) 1.1 (0.9-7.0) % Baso % (Auto) 0.5 (0.2-2.0) % Neut # (Auto) 5.9 (1.4-6.5) 10^3/uL Lymph # (Auto) 2.1 (1.2-3.8) 10^3/uL [place] # (Auto) 0.6 (0.3-0.8) 10^3/uL Eos # (Auto) 0.1 (0.0-0.7) 10^3/uL Baso # (Auto) 0.0 (0.0-0.1) 10^3/uL Abs Immat Gran (auto) 0.02 (0.00-0.03) 10^3/uL Imm/Tot Granulo (auto) 0.2 (0.0-0.5) % Sodium 137 (136-145) mmol/L Potassium 3.7 (3.5-5.1) mmol/L Chloride 103 (98-107) mmol/L Carbon Dioxide 27.5 (21.0-32.0) mmol/L Anion Gap 10.2 BUN 16.0 (7.0-18.0) mg/dL Creatinine 0.54 L (0.55-1.02) mg/dL Est GFR ( Amer) >60 (>=60) Est GFR (Non-Af Amer) >60 (>=60) BUN/Creatinine Ratio 29.6 Glucose 91 (74-106) mg/dL Lactate 1.2 (0.4-2.0) mmol/L Calcium 8.7 (8.5-10.1) mg/dL Total Bilirubin 0.4 (0.2-1.0) mg/dL AST 7 L (15-37) U/L ALT 12 L (14-59) U/L Alkaline Phosphatase 73 (46-116) U/L Total Protein 7.1 (6.4-8.2) g/dL Albumin 3.6 (3.4-5.0) g/dL Globulin 3.5 g/dL Albumin/Globulin Ratio 1.0 Lipase 199.0 H (16.0-77.0) U/L Urine Color Lt. yellow (YELLOW) Urine Clarity Clear (CLEAR) Urine pH 7.0 (5.0-9.0) Ur Specific [place] 1.015 (1.005-1.025) Urine Protein Negative (NEG/TRACE) mg/dL Urine Glucose (UA) Negative (NEGATIVE) mg/dL Urine Ketones Negative (NEGATIVE) mg/dL Urine Occult Blood Negative (NEGATIVE) Urine Nitrite Negative (NEGATIVE) Urine Bilirubin Negative (NEGATIVE) Urine Urobilinogen 0.2 (0.2-1.0) EU/dL Ur Leukocyte Esterase Negative (NEGATIVE) Discharge Plan Discharge Chief Complaint: Abdominal Pain Clinical Impression: Pancreatitis, Abdominal pain Patient Disposition: Home, Self-Care Time of Disposition Decision: 15:10 Prescriptions / Home Meds: No Action No Known Home Medications Additional Instructions: Zofran/clear fluid diet forty-eight hours/return if worse/[place] Stand Alone Forms: Portal Instructions Referrals: Physician,Non-Staff, MD [Primary Care Provider] - 1 week
== END 2023-09-25 15:22 | disposition home or self-care (01) ==
PROVIDERS: Emergency Provider Emergency Medicine Emergency Medical Services
DX: R10.9 Unspecified abdominal pain (principal); K85.90 Acute pancreatitis without necrosis or infection, unspecified; Z90.79 Acquired absence of other genital organ(s); Z87.891 Personal history of nicotine dependence
CPT/HCPCS: 36415; 80053; 81003; 83605; 83690; 85025; 99284

== ENCOUNTER 2023-09-28 08:53 | Emergency (ER) | payer OTHER, SELFPAY ==
[2023-09-28 08:58] VITALS: BP 138/52; PULSE 68; RESP 18; TEMP 36.7; O2SAT 100; BMI 20.1
--- NOTE | 2023-09-28 09:05 | ED.ABDPAIN1 ---
HPI - Abdominal Pain General Chief Complaint: Abdominal Pain Stated Complaint: LAB RECHECK Time Seen by Provider: 09/28/23 09:03 Source: patient Mode of arrival: walk-in Limitations: no limitations History of Present Illness HPI narrative: this patient was seen here several days ago and was otherwise to follow-up to primary care doctor. She had mild abdominal pain and mild elevation of her lipase. She's done very well over the weekend. She's adhered to the liquid diet. She's not had any vomiting or diarrhea. She did not take any pain pills. She is not running a fever. She came to Emergency Room today because her family doctor is ill and canceled her appointment. She is dressed and getting ready to go to work and does not look acutely ill today. Related Data Home Medications Medication Instructions Recorded Confirmed No Known Home Medications 09/25/23 09/25/23 Allergies Allergy/AdvReac Type Severity Reaction Status Date / Time No Known Drug Allergies Allergy Verified 07/12/23 13:55 [facility] Medical History (Updated 09/28/23 @ 10:14 by Joe North MD) Abdominal pain ?R10.9 - Unspecified abdominal pain (ICD-10) Acute postoperative abdominal pain ?G89.18 - Other acute postprocedural pain (ICD-10) ?R10.9 - Unspecified abdominal pain (ICD-10) Infertility Irregular menstrual cycle ?N92.6 - Irregular menstruation, unspecified (ICD-10) Pelvic inflammatory disease ?N73.9 - Female pelvic inflammatory disease, unspecified (ICD-10) Tubo-ovarian abscess ?N70.93 - Salpingitis and oophoritis, unspecified (ICD-10) Surgical History Family History Brother Family history of cancer Social History Within the past year, how often did you have a drink containing alcohol: monthly or less Within the past year, how often did you have six or more drinks on one occasion: never Smoking status: Former smoker Non-prescribed substance use: cannabis (any form) Non-prescribed substance use details: not now but in past 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 [employer] Highest level of school completed/degree received: high school graduate Are you now , , , , never or living with a partner: Little interest or pleasure in doing things: not at all Feeling down, depressed, or hopeless: not at all Feel stressed/tense/nervous/anxious/difficulty sleeping: only a little Life stressor details: infertility issues Due to disability, difficulty making decisions: No Do you think of yourself as: straight/heterosexual Gender Identity: female Exam Narrative Exam Narrative: pleasant awake alert appears in no distress moving about comfortably. Vital signs stable she's afebrile. Problem focused examination she has very minimal tenderness to aggressive deep palpation in the epigastric area. There is no peritoneal findings no rebound or rigidity. Strength screening labs will be done to make sure there iss no deterioration, and hopefully improvement of her previous diagnostic studies. Constitutional Vital Signs, click to edit/add: Last Vital Signs Temp 98.0 F 09/28/23 08:58 Pulse 68 09/28/23 08:58 Resp 18 09/28/23 08:58 BP 138/52 09/28/23 08:58 Pulse Ox 100 09/28/23 08:58 O2 Del Method Room Air 09/28/23 08:58 Course Vital Signs Vital signs: Vital Signs Temperature 98.0 F 09/28/23 08:58 Pulse Rate 68 09/28/23 08:58 Respiratory Rate 18 09/28/23 08:58 Blood Pressure 138/52 09/28/23 08:58 Pulse Oximetry 100 09/28/23 08:58 Oxygen Delivery Method Room Air 09/28/23 08:58 Temperature 98.0 F 09/28/23 08:58 Pulse Rate 68 09/28/23 08:58 Respiratory Rate 18 09/28/23 08:58 Blood Pressure 138/52 09/28/23 08:58 Pulse Oximetry 100 09/28/23 08:58 Oxygen Delivery Method Room Air 09/28/23 08:58 MDM - Abdominal Pain MDM Narrative Medical decision making narrative: patient's lab is greatly improved. Clinically she is doing better. We'll slowly advance her diet. She was advised to follow up with primary care doctor to consider workup for morbid biliary dysfunction. Lab Data Labs: Lab Results 09/28/23 Range/Units 09:25 WBC 8.3 (4.0-11.0) 10^3/uL RBC 4.48 (4.20-5.40) 10^6/uL Hgb 12.2 (12.0-16.0) g/dL Hct 37.9 (36.0-48.0) % MCV 84.6 (81.0-99.0) fL MCH 27.2 (26.7-34.0) pg MCHC 32.2 (29.9-35.2) g/dL RDW 13.2 (11.0-15.0) % Plt Count 286 (150-450) 10^3/uL MPV 8.5 L (9.5-13.5) fL Neut % (Auto) 70.8 (43.0-75.0) % Lymph % (Auto) 21.1 (20.5-60.0) % [place] % (Auto) 6.5 (1.7-12.0) % Eos % (Auto) 1.0 (0.9-7.0) % Baso % (Auto) 0.5 (0.2-2.0) % Neut # (Auto) 5.9 (1.4-6.5) 10^3/uL Lymph # (Auto) 1.7 (1.2-3.8) 10^3/uL [place] # (Auto) 0.5 (0.3-0.8) 10^3/uL Eos # (Auto) 0.1 (0.0-0.7) 10^3/uL Baso # (Auto) 0.0 (0.0-0.1) 10^3/uL Abs Immat Gran (auto) 0.01 (0.00-0.03) 10^3/uL Imm/Tot Granulo (auto) 0.1 (0.0-0.5) % Total Bilirubin 0.2 (0.2-1.0) mg/dL Direct Bilirubin 0.1 (0.0-0.2) mg/dL AST 9 L (15-37) U/L ALT 12 L (14-59) U/L Alkaline Phosphatase 65 (46-116) U/L Total Protein 6.5 (6.4-8.2) g/dL Albumin 3.2 L (3.4-5.0) g/dL Globulin 3.3 g/dL Albumin/Globulin Ratio 1.0 Lipase 40.0 (16.0-77.0) U/L Discharge Plan Discharge Chief Complaint: Abdominal Pain Clinical Impression: Acute pancreatitis Patient Disposition: Home, Self-Care Time of Disposition Decision: 10:14 Prescriptions / Home Meds: No Action No Known Home Medications Stand Alone Forms: Portal Instructions Referrals: Physician,Non-Staff, MD [Primary Care Provider] - 1 week
[2023-09-28 09:32] LABS: Basophils Percent Auto 0.5 % (0.2-2.0); Eosinophils Absolute Auto 0.1 10^3/uL (0.0-0.7); Hematocrit 37.9 % (36.0-48.0); Hemoglobin 12.2 g/dL (12.0-16.0); Immature Granulocytes Abs Auto 0.01 10^3/uL (0.00-0.03); Immature Granulocytes Pct Auto 0.1 % (0.0-0.5); Lymphocytes Absolute Auto 1.7 10^3/uL (1.2-3.8); Lymphocytes Percent Auto 21.1 % (20.5-60.0); Mean Corpuscular HGB Conc 32.2 g/dL (29.9-35.2); Mean Corpuscular Hemoglobin 27.2 pg (26.7-34.0); Mean Corpuscular Volume 84.6 fL (81.0-99.0); Mean Platelet Volume 8.5 fL (9.5-13.5); Monocytes Absolute Auto 0.5 10^3/uL (0.3-0.8); Monocytes Percent Auto 6.5 % (1.7-12.0); Neutrophils Absolute Auto 5.9 10^3/uL (1.4-6.5); Neutrophils Percent Auto 70.8 % (43.0-75.0); Platelet Count 286 10^3/uL (150-450); Red Blood Count 4.48 10^6/uL (4.20-5.40); Red Cell Distribution Width 13.2 % (11.0-15.0); White Blood Count 8.3 10^3/uL (4.0-11.0)
[2023-09-28 09:47] LABS: Alanine Aminotransferase 12 U/L (14-59); Albumin Level 3.2 g/dL (3.4-5.0); Alkaline Phosphatase 65 U/L (46-116); Aspartate Amino Transferase 9 U/L (15-37); Bilirubin Direct 0.1 mg/dL (0.0-0.2); Bilirubin Total 0.2 mg/dL (0.2-1.0); Globulin 3.3 g/dL; Total Protein 6.5 g/dL (6.4-8.2)
== END 2023-09-28 10:26 | disposition home or self-care (01) ==
PROVIDERS: Emergency Provider Emergency Medicine Emergency Medical Services
DX: K85.90 Acute pancreatitis without necrosis or infection, unspecified (principal); Z87.891 Personal history of nicotine dependence
CPT/HCPCS: 36415; 80076; 83690; 85025; 99283

== ENCOUNTER 2023-11-26 15:43 | Emergency (ER) | payer OTHER, SELFPAY ==
[2023-11-26 15:49] VITALS: BP 137/66; PULSE 97; RESP 16; TEMP 36.2; O2SAT 100; BMI 21.2
--- NOTE | 2023-11-26 16:07 | XR_ITS ---
[address] [address] Patient Name: EDUARDO ALCALA MRN: [id number] date: 1985 Sex: F Assigned Patient Location: ER Current Patient Location: ED.MAIN Accession/Order Number: [id number] Exam Date: 11/26/2023 16:15 Report Date: 11/26/2023 16:45 At the request of: MARK COLE Procedure: XR acute abdomen series EXAM: XR acute abdomen series TECHNIQUE: PA view chest. Supine and upright views of the abdomen. HISTORY: Lower GI bleed COMPARISON: CT scan 07/12/2023 FINDINGS: No evidence for bowel obstruction. No evidence for free intraperitoneal air. No abnormal abdominal calcifications. No acute osseous abnormality. The heart and mediastinum are unremarkable. Lung jimenez are clear. XR/XR acute abdomen series IMPRESSION: No acute abdominal pathology. No acute pulmonary findings. Electronically authenticated by: STEFF LOZANO Date: 11/26/2023 16:45
--- NOTE | 2023-11-26 16:08 | ED_ITS ---
HPI - General Adult General Chief complaint: GI Bleed Stated complaint: recto bleeding Time Seen by Provider: 11/26/23 15:45 Source: patient Mode of arrival: walk-in Limitations: no limitations History of Present Illness HPI narrative: Patient is a 38-year-old female who presents to the emergency department for the evaluation of rectal bleeding that has been ongoing throughout the day. She reports bright red blood per rectum, she bled through her pants prior to arrival. She has not been straining to have bowel movements. She has not had any fevers, chills, cough, congestion. No complaints of abdominal pain, she states yesterday she had an upset stomach but believes it was her anxiety. She is not concerned for . She states she had a colonoscopy at age 22 related to rectal bleeding although the bleeding was not as severe at that time. Related Data Home Medications Medication Instructions Recorded Confirmed No Known Home Medications 09/25/23 09/25/23 Allergies Allergy/AdvReac Type Severity Reaction Status Date / Time No Known Drug Allergies Allergy Verified 11/26/23 15:49 Review of Systems ROS Constitutional Denies: fever or chills Ears, nose, mouth, and throat Denies: throat pain or nasal congestion Cardiovascular Denies: chest pain Respiratory Denies: shortness of breath Gastrointestinal Reports: abdominal pain and blood in stool; Denies: nausea, vomiting or diarrhea Genitourinary Denies: painful urination Musculoskeletal Denies: back pain Integumentary/Breast Denies: rash Neurological Denies: headache Hematologic/Lymphatic Denies: easy bruising or easy bleeding [facility] Medical History (Updated 11/26/23 @ 17:12 by CHANCE Pack) Pelvic inflammatory disease ?N73.9 - Female pelvic inflammatory disease, unspecified (ICD-10) Tubo-ovarian abscess ?N70.93 - Salpingitis and oophoritis, unspecified (ICD-10) Abdominal pain ?R10.9 - Unspecified abdominal pain (ICD-10) Acute postoperative abdominal pain ?G89.18 - Other acute postprocedural pain (ICD-10) ?R10.9 - Unspecified abdominal pain (ICD-10) Infertility Irregular menstrual cycle ?N92.6 - Irregular menstruation, unspecified (ICD-10) Surgical History Family History Brother Family history of cancer Social History Within the past year, how often did you have a drink containing alcohol: monthly or less Within the past year, how often did you have six or more drinks on one occasion: never Smoking status: Former smoker Non-prescribed substance use: cannabis (any form) Non-prescribed substance use details: not now but in past 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[employer] Highest level of school completed/degree received: high school graduate Are you now , , , , never or living with a partner: Little interest or pleasure in doing things: not at all Feeling down, depressed, or hopeless: not at all Feel stressed/tense/nervous/anxious/difficulty sleeping: only a little Life stressor details: infertility issues Due to disability, difficulty making decisions: No Do you think of yourself as: straight/heterosexual Gender Identity: female Exam Narrative Exam Narrative: Gen.: Awake, alert, in no distress Head: Normocephalic, atraumatic ENT: Moist mucous membranes Respiratory: No respiratory distress Gastrointestinal: Abdomen is soft, nondistended and nontender to palpation; Rectal exam performed with Sona Celestin RN At bedside throughout the duration of the exam. 2 small hemorrhoids noted at the rectal opening with dried red blood, no active blood per rectum. No thrombosed hemorrhoids noted. Extremities: Moves extremities equally, no injuries noted Psych: Normal mood and affect Neuro: No focal neuro deficit Skin: Warm, dry, intact Constitutional Vital Signs, click to edit/add: Last Vital Signs Temp 97.2 F L 11/26/23 15:49 Pulse 97 H 11/26/23 15:49 Resp 16 11/26/23 15:49 BP 137/66 11/26/23 15:49 Pulse Ox 100 11/26/23 15:49 O2 Del Method Room Air 11/26/23 15:49 Course Vital Signs Vital signs: Vital Signs Temperature 97.2 F L 11/26/23 15:49 Pulse Rate 97 H 11/26/23 15:49 Respiratory Rate 16 11/26/23 15:49 Blood Pressure 137/66 11/26/23 15:49 Pulse Oximetry 100 11/26/23 15:49 Oxygen Delivery Method Room Air 11/26/23 15:49 Temperature 97.2 F L 11/26/23 15:49 Pulse Rate 97 H 11/26/23 15:49 Respiratory Rate 16 11/26/23 15:49 Blood Pressure 137/66 11/26/23 15:49 Pulse Oximetry 100 11/26/23 15:49 Oxygen Delivery Method Room Air 11/26/23 15:49 Medical Decision Making MDM Narrative Medical decision making narrative: Rectal exam shows 2 hemorrhoids, no thrombosis or active bleeding. Patient hemodynamically stable with abdomen soft and benign. Lab studies show no anemia with improved hemoglobin since July. Abdominal x-rays are unremarkable. Patient was given education and reassurance. She is discharged home to follow- up with general surgery and return to the ER if symptoms change or worsen. Medical Records Medical records reviewed: Yes I reviewed the patient's medical records Lab Data Lab results reviewed: Yes I reviewed the patient's lab results Labs: Lab Results 11/26/23 Range/Units 16:34 WBC 8.5 (4.0-11.0) 10^3/uL RBC 4.86 (4.20-5.40) 10^6/uL Hgb 12.9 (12.0-16.0) g/dL Hct 39.4 (36.0-48.0) % MCV 81.1 (81.0-99.0) fL MCH 26.5 L (26.7-34.0) pg MCHC 32.7 (29.9-35.2) g/dL RDW 14.7 (11.0-15.0) % Plt Count 312 (150-450) 10^3/uL MPV 9.1 L (9.5-13.5) fL Neut % (Auto) 62.2 (43.0-75.0) % Lymph % (Auto) 30.8 (20.5-60.0) % [place] % (Auto) 5.0 (1.7-12.0) % Eos % (Auto) 1.3 (0.9-7.0) % Baso % (Auto) 0.6 (0.2-2.0) % Neut # (Auto) 5.3 (1.4-6.5) 10^3/uL Lymph # (Auto) 2.6 (1.2-3.8) 10^3/uL [place] # (Auto) 0.4 (0.3-0.8) 10^3/uL Eos # (Auto) 0.1 (0.0-0.7) 10^3/uL Baso # (Auto) 0.1 (0.0-0.1) 10^3/uL Abs Immat Gran (auto) 0.01 (0.00-0.03) 10^3/uL Imm/Tot Granulo (auto) 0.1 (0.0-0.5) % PT 10.6 (9.0-11.6) sec INR 1.00 APTT 31.7 (22.3-36.2) sec Sodium 139 (136-145) mmol/L Potassium 3.7 (3.5-5.1) mmol/L Chloride 103 (98-107) mmol/L Carbon Dioxide 26.5 (21.0-32.0) mmol/L Anion Gap 13.2 BUN 10.0 (7.0-18.0) mg/dL Creatinine 0.63 (0.55-1.02) mg/dL Est GFR ( Amer) >60 (>=60) Est GFR (Non-Af Amer) >60 (>=60) BUN/Creatinine Ratio 15.9 Glucose 87 (74-106) mg/dL Calcium 9.0 (8.5-10.1) mg/dL Imaging Data Abdominal x-ray: Attestation: I have reviewed the pertinent imaging results. Radiologist's impression: ITS Impressions Chest/Abdomen X-ray 11/26/23 16:07 IMPRESSION: No acute abdominal pathology. No acute pulmonary findings. Electronically authenticated by: STEFF LOZANO Date: 11/26/2023 16:45 Discharge Plan Discharge Chief Complaint: GI Bleed Clinical Impression: Rectal bleeding, Hemorrhoids Patient Disposition: Home, Self-Care Time of Disposition Decision: 17:12 Condition: Good Prescriptions / Home Meds: No Action No Known Home Medications Instructions: Rectal Bleeding (ED) Stand Alone Forms: Portal Instructions Referrals: Richar Sidhu MD [Physician] - 1 week PhysicianNon-MD Fredy [Primary Care Provider] - 1 week
--- OUTSIDE RECORDS SUMMARY | 2023-11-26 16:09 | XMS_ITS | CCD ---
Author Name Unknown Address [address] [place] [address] Organization [facility] Care Team Providers Care Event Marketing Intern Name Role Phone Rylee Peraza Primary Care Physician Unavail able FRANCO ., DR WALSH Admitting Unavailable FRANCO ., DR WALSH Attending Unavailable FRANCO ., DR WALSH Consulting Unavailable ZIEBER, DR FENG Hall Consulting Unavailable FRANCO ., DR WALSH Attending Unavailable FRANCO ., DR WALSH Consulting Unavailable FRANCO ., DR WALSH Admitting Unavailable FRANCO ., DR WALSH Attending Unavailable FRANCO ., DR WALSH Consulting Unavailable FRANCO ., DR WALSH Admitting Unavailable Bullimore, Marybel E Admitting Unavailable Bullimore, Marybel E Attending Unavailable NO FAMILY, PHYSICIAN Primary Care Unavailable Raciel Griffin Primary Care Physician RYLEE PERAZA Primary Care Unavailable Jim Viramontes Attending Unavailable Raciel Griffin Attending Unavailable RYLEE PERAZA Primary Care Unavailable Raciel Griffin Attending Unavailable Allergies Allergy Classification Reported Allergen(s) Allergy Type Date of Onset Reaction(s) Facility (1 source) Acetaminophen Drug Allergy 02-03-2018 [facility] (1 source) oxyCODONE Drug Allergy 09-04-2023 [facility] Medications Current Medications Medication Drug Class(es) Dates Sig (Normalized) Sig (Original) ascorbic acid 500 mg chewable tablet (3 sources) Vitamin C Start: 07-24-2020 take 1 tablet by mouth once daily Vitamin C 500 mg oral tablet, chewable 500 mg = 1 tab(s), Chewed, Daily, # 90 tab(s), Refills(s) 0 Start Date: 07/24/20 Status: Ordered azithromycin 250 mg oral tablet (1 source) Macrolide Antimicrobial Start: 02-05-2022 End: 02-10-2022 Zithromax 250 mg Tab = 1 packet(s), Oral, As Directed, as directed on package labeling, X 5 day(s), # 6 tab(s), Refills(s) 0, Pharmacy: [facility], 158, cm, 02/05/22 10:35:00 EDT, Height/Length Dosing, 52.9, kg, 02/05/22 10:35:00 EDT, Weight Dosing Start Date: 02/05/22 Stop Date: 02/10/22 Status: Ordered fluticasone 0.05 mg/inh Nasal [place] (4 sources) Start: 02-05-2022 take 2 spray(s) nasal route once daily fluticasone 0.05 mg/inh Nasal [place] 2 spray(s), Nasal, Daily, 16 gram, Refill(s) 5, each nostril, [facility], 158, cm, 02/05/22 10:35:00 EDT, Height/Length Dosing, 52.9, kg, 02/05/22 10:35:00 EDT, Weight Dosing Start Date: 02/05/22 Status: Ordered sodium chloride 0.111 meq/ml nasal spray (4 sources) Start: 02-05-2022 Waldo Saline Mist 0.65% nasal spray 2 spray(s), Nasal, QID, 1 EA, Refill(s) 2, [facility], 158, cm, 02/05/22 10:35:00 EDT, Height/Length Dosing, 52.9, kg, 02/05/22 10:35:00 EDT, Weight Dosing Start Date: 02/05/22 Status: Ordered Start: 02-05-2022 Waldo Saline Mis t 0.65% nasal spray 2 spray(s), Nasal, QID, 1 EA, Refill(s) 2, [facility], 158, cm, 02/05/22 10:35:00 EDT, Height/Length Dosing, 52.9, kg, 02/05/22 10:35:00 EDT, Weight Dosing Start Date: 02/05/22 Status: Ordered Vitafusion Gummy DHA and Folic Acid (5 sources) Start: 07-24-2020 Vitafusion Pre elsi Gummy DHA and Folic Acid Refill(s) 0 Start Date: 07/24/20 Status: Ordered Vitamin C 500 mg oral tablet, chewable (2 sources) Start: 07-24-2020 take 1 tablet by mouth once daily Vitamin C 500 mg oral tablet, chewable 500 mg = 1 tab(s), Chewed, Daily, # 90 tab(s), Refills(s) 0 Start Date: 07/24/20 Status: Ordered Problems Active Problems Problem Classification Problem Date Documented Date Episodic/Chronic Abdominal pain (1 source) Unspecified abdominal pain; Translations: [Unspecified abdominal pain] Onset: 09-04-2023 Episodic Benign neoplasm of uterus (6 sources) Uterine leiomyoma; Translations: [Leiomyoma of uterus, unspecified] Onset: 02-19-2023 08-20-2020 Episodic Female infertility (5 sources) Female infertility 08-20-2020 Chronic Genitourinary symptoms and ill-defined conditions (2 sources) Dysuria 08-08-2022 Episodic Hemorrhoids (2 sources) Bleeding hemorrhoids 08-08-2022 Episodic Menstrual disorders (5 sources) Irregular periods; Translations: [Irregular menstruation, unspecified] Onset: 12-23-2022 Chronic Other ear and sense organ disorders (1 source) Otalgia, left ear; Translations: [Otalgia of left ear] Onset: 03-03-2022 Episodic Other ear and sense organ disorders (1 source) Impacted cerumen in left ear; Translations: [Impacted cerumen, left ear] Onset: 03-03-2022 Episodic Other upper respiratory infections (4 sources) Upper respiratory infection; Translations: [Acute pharyngitis] Onset: 12-23-2022 02-12-2022 Episodic Otitis media and related conditions (1 source) Non-suppurative otitis media; Translations: [Unspecified nonsuppurative otitis media, unspecified ear] Onset: 03-03-2022 Episodic Ovarian cyst (1 source) Unspecified ovarian cyst, right side; Translations: [UNSPECIFIED OVARIAN CYST RIGHT SIDE] Onset: 02-19-2023 Episodic Residual codes; unclassified (1 source) Body mass index 20-24 - normal; Translations: [Body mass index (BMI) 21.0-21.9, adult] Onset: 03-03-2022 Episodic Residual codes; unclassified (1 source) Patient encounter status; Translations: [Other specified health status] Onset: 03-03-2022 Episodic Unclassified (5 sources) Non-smoker 03-04-2021 Past or Other Problems Problem Classification Problem Date Documented Da te Episodic/Chronic Unclassified (1 source) Exposure to 2019 novel coronavirus; Translations: [Contact with and (suspected) exposure to COVID19] Results Test Name Value Interpretation Reference Range Facility Urinalysison 09-04-2023 Appearance (U) Clear Normal Clear [facility] Comment on above: Order Comment: Name Collection Type:: Clean-Voided Midstream Performed By: #### U A #### [facility] [address] [place] [address] [place] Bilirubin,Urine Negative Normal Negative [facility] Comment on above: Order Comment: Name Collection Type:: Clean-Voided Midstream Performed By: #### U A #### [facility] [address] [place] [address] [place] Color (U) Yellow Normal Yellow [facility] Comment on above: Order Comment: Name Collection Type:: Clean-Voided Midstream Performed By: #### U A #### [facility] [address] [place], [place] [id number] [place] Glucose Ql (U) Normal Normal Normal [facility] Comment on above: Order Comment: Name Collection Type:: Clean-Voided Midstream Performed By: #### U A #### [facility] [address] [place], [place] [id number] [place] Ketones Ql (U) Trace High Negative [facility] Comment on above: Order Comment: Name Collection Type:: Clean-Voided Midstream Performed By: #### U A #### [facility] [address] [place] [id number] [place] Leukocyte esterase Test strip Ql (U) Negative Normal Negative [facility] Comment on above: Order Comment: Name Collection Type:: Clean-Voided Midstream Performed By: #### U A #### [facility] [address] [place], [place] [id number] [place] Nitrite,Urine Negative Normal Negative [facility] Comment on above: Order Comment: Name Collection Type:: Clean-Voided Midstream Performed By: #### U A #### [address] Occult Blood,Urine Negative Normal Negative [facility] Comment on above: Order Comment: Name Collection Type:: Clean-Voided Midstream Result Comment: PERF ORMED BY: [place] [address] PATHOLOGIST DEMOGRAPHIC ANALYST TONIO NAJERA M.D. Performed By: #### U A #### [address] pH (U) 6.5 [pH] Normal 5.0-9.0 [facility] Comment on above: Order Comment: Name Collection Type:: Clean-Voided Midstream Performed By: #### U A #### [address] Protein,Urine Negative Normal Negative [facility] Comment on above: Order Comment: Name Collection Type:: Clean-Voided Midstream Performed By: #### U A #### [address] Specificy [place],Urine 1.018 Normal 1.001-1.030 [facility] Comment on above: Order Comment: Name Collection Type:: Clean-Voided Midstream Performed By: #### U A #### [address] Urobilinogen,Urine Normal Normal Normal [facility] Comment on above: Order Comment: Name Collection Type:: Clean-Voided Midstream Performed By: #### U A #### [place] [address] [place] XR abdomen 1Von 09-04-2023 XR abdomen 1V [facility] [place] [address] [place] [address] XRay Report Signed Patient: Eduardo Alcala MR#: [id number] : 1985 Acct:[id number] Age/Sex: 38 / F ADM Date: 09/04/23 Loc: ER Room: Type: [facility] ER Attending Dr: Copies to: BACILIO Way Ordering Provider: BACILIO Way Date of Service: 09/04/23 XR/XR abdomen 1V: Abdominal Pain KUB: CLINICAL INFORMATION: Lower abdominal pain with abnormal bowel movements. COMPARISON: None. FINDINGS: Nonspecific bowel gas pattern. No free air. No suspicious urinary tract calcifications. Osseous structures appear grossly intact. XR/XR abdomen 1V IMPRESSION: No acute process. Impression dictated by: Bernardo Acevedo Jr., D.OCole09/04/2023 1:55 PM Dictation Location: [place] [address] Transcribed By: [facility] 09/04/23 1355 Dictated By: Bernardo Acevedo Jr, DO 09/04/23 1355 Signed By: 09/04/23 1355 Normal [facility] PROGESTERONEon 02-22-2023 Progesterone 11.5 ng/mL Normal [facility] Comment on above: Result Comment: Foll icular phase 0.1 - 0.9 Luteal phase 1.8 - 23.9 Ovulation phase 0.1 - 12.0 First trimester 11.0 - 44.3 Second trimester 25.4 - 83.3 Third trimester 58.7 - 214.0 Postmenopausal 0.0 - 0.1 Performed By: #### P WIN #### [facility] [address] [place] [address] Dr. Janet Lawson US PELVIS AND TRANSVAGon US PELVIS AND TRANSVAG EXAMINATION: US PELVIS AND TRANSVAG HISTORY: Irregular periods COMPARISON: No relevant comparison available. TECHNIQUE: Transabdominal and transvaginal sonographic examination. FINDINGS: UTERUS: Isoechoic 2.2 cm rounded mass within posterior fundal myometrium favoring a leiomyoma. Uterus size: 8.0 x 4.0 x 5.5 cm ENDOMETRIUM: Normal homogeneous appearance. Endometrial thickness: 12 mm RIGHT OVARY: Right ovary crosses midline and is located adjacent to the left ovary, and contains several cysts, largest is 4.0 cm. Duplex Doppler demonstrates normal waveform and flow; resistive index 0.4. Venous flow was also documented within the ovary. Ovary size: 9.6 x 5.5 x 7.4 cm LEFT OVARY: Normal size and appearance. Duplex Doppler demonstrates normal waveform and flow; resistive index 0.5. Ovary size: 4.0 x 2.9 x 2.5 cm CUL-DE-SAC: Unremarkable. No significant free fluid. BLADDER: Unremarkable. OTHER: None. IMPRESSION: 1. Uterine leiomyoma, 2.2 cm within posterior fundal myometrium. 2. Unremarkable endometrium. 3. Several prominent right ovarian cysts, largest is 4.0 cm. No torsion. Electronically authenticated by: FENG ROBERTS Date: 2023-02-16 06:41 Normal [facility] ANTI-MULLERIAN HORMONEon Anti-Mullerian Hormone (AMH) 1.33 ng/mL Normal [facility] Comment on above: Result Comment: For assays employing antibodies, the possibility exists for interference by heterophile antibodies in the samples.1 1.Belgica Mclean Interferences in Immunoassays - still a threat. Clin. Chem. 2000; 46: 3418-1264. This test was developed and its performance characteristics determined by [employer]. It has not been cleared or approved by the Food and Drug Administration. Reference Range: Females 36 - 40y: 0.42 - 8.34 Median 1.69 AMH concentrations of >= 1.06 ng/mL is correlated with a better response to ovarian stimulation, produced more retrievable oocytes and higher odds of live according to Gleicher et al. Fertility and Sterility. 2010: 94:2386-9342. The current AMH test method correlates with the study method with a slope of 0.94. Females at risk of ovarian hyperstimulation syndrome or polycystic ovarian syndrome (PCOS) may exhibit elevated serum AMH concentrations. AMH levels from PCOS patients may be 2 to 5 fold higher than age-appropriate reference interval values. Granulosa cell tumors of the ovary may secrete AMH along with other tumor markers. Elevated AMH is not specific for malignancy, and the assay should not be used exclusively to diagnose or exclude an AMH-secreting ovarian tumor. Performed By: #### Alba WILSON #### [facility] [address] [place], [place] [address] Dr. Janet Lawson DHEA SERUMon 02-04-2023 Dehydroepiandrosterone (DHEA) 492 ng/dL Normal 31-701 [facility] Comment on above: Performed By: #### Sunita MORRELL. #### [facility] [address] [place], [place] [address] Dr. Janet Lawson DHEA-SULFATEon 02-03-2023 DHEA-Sulfate 192.0 ug/dL Normal 57.3-279.2 [facility] Comment on above: Performed By: #### D KESHAWN #### [facility] [address] [place] [address] Dr. Janet Lawson FSHon 02-03-2023 FSH 9.1 mIU/mL Normal [facility] Comment on above: Result Comment: Adul t Female: Follicular phase 3.5 - 12.5 Ovulation phase 4.7 - 21.5 Luteal phase 1.7 - 7.7 Postmenopausal 25.8 - 134.8 Performed By: #### [facility] #### [facility] [address] [place] [address] Dr. Janet Lawson LUTEINIZING HORMONE (LH)on 0 02-03-2023 LH 4.0 mIU/mL Normal [facility] Comment on above: Result Comment: Adul t Female: Follicular phase 2.4 - 12.6 Ovulation phase 14.0 - 95.6 Luteal phase 1.0 - 11.4 Postmenopausal 7.7 - 58.5 Performed By: #### L BCLH #### [facility] [address] [place] [address] Dr. Janet Lawson CBC AUTO DIFFon 02-02-2023 BASO # 0.1 103/ul Normal 0.0-0.1 [facility] Comment on above: Performed By: #### C BC #### [facility] [address] [place] [address] Dr. Janet Lawson Basophils/100 WBC (Bld) 0.5 % Normal 0.2-2.0 [facility] Comment on above: Performed By: #### C BC #### [facility] [address] [place] [address] Dr. Janet Lawson EO # 0.1 103/ul Normal 0.0-0.7 [facility] Comment on above: Performed By: #### C BC #### [facility] [address] [place] [address] Dr. Janet Lawson Eosinophils/100 WBC (Bld) 0.5 % Critically low 0.9-7. 0 [facility] Comment on above: Performed By: #### C BC #### [facility] [address] [place] [address] Dr. Janet Lawson Erythrocyte distribution width (RBC) [Ratio] 13.6 % Normal 11.0-15.0 [facility] Comment on above: Performed By: #### C BC #### [facility] [address] [place] [address] Dr. Janet Lawson Hematocrit (Bld) [Volume fraction] 39.8 % Normal 36.0-48.0 [facility] Comment on above: Performed By: #### C BC #### [facility] [address] [place] [address] Dr. Janet Lawson Hemoglobin (Bld) [Mass/Vol] 13.0 g/dL Normal 12.0-16.0 [facility] Comment on above: Performed By: #### C BC #### [facility] [address] [place] [address] Dr. Janet Lawson IG # 0.03 10e3/ul Normal 0.00-0.03 [facility] Comment on above: Performed By: #### C BC #### [facility] [address] [place] [address] Dr. Janet Lawson IG % 0.2 % Normal 0.0-0.5 [facility] Comment on above: Performed By: #### C BC #### [facility] [address] [place] [address] Dr. Janet Lawson LYMPH # 2.7 103/ul Normal 1.2-3.8 [facility] Comment on above: Performed By: #### C BC #### [facility] [address] [place] [address] Dr. Janet Lawson Lymphocytes/100 WBC (Bld) 22.2 % Normal 20.5-60.0 [facility] Comment on above: Performed By: #### C BC #### [facility] [address] [place] [address] Dr. Janet Lawson MANUAL DIFF REQ NO Normal [facility] Comment on above: Performed By: #### C BC #### [facility] [address] [place] [address] [address] Janet Lawson MCH (RBC) [Entitic mass] 27.9 pg Normal 26.7-34.0 [facility] Comment on above: Performed By: #### C BC #### [facility] [address] [place] [address] Dr. Janet Lawson MCHC (RBC) [Mass/Vol] 32.7 g/dL Normal 29.9-35.2 [facility] Comment on above: Performed By: #### C BC #### [facility] [address] [place] [address] Dr. Janet Lawson MCV (RBC) [Entitic vol] 85.4 fL Normal 81.0-99.0 [facility] Comment on above: Performed By: #### C BC #### [facility] [address] [place] [address] Dr. Janet Lawson MONO # 0.5 103/ul Normal 0.3-0.8 [facility] Comment on above: Performed By: #### C BC #### [facility] [address] [place] [address] Dr. Janet Lawson Monocytes/100 WBC (Bld) 4.0 % Normal 1.7-12.0 [facility] Comment on above: Performed By: #### C BC #### [facility] [address] [place] [address] Dr. Janet Lawson NEUT # 8.8 103/ul Critically high 1.4-6.5 [facility] Comment on above: Performed By: #### C BC #### [facility] [address] [place] [address] Dr. Janet Lawson Neutrophils/100 WBC (Bld) 72.6 % Normal 43.0-75.0 [facility] Comment on above: Performed By: #### C BC #### [facility] [address] [place] [address] Dr. Janet Lawson Platelet mean volume (Bld) [Entitic vol] 9.1 fL Critically low 9.5-13.5 [facility] Comment on above: Performed By: #### C BC #### [facility] [address] [place] [address] [address] Janet Lawson PLT 388 103/ul Normal 150-450 [facility] Comment on above: Performed By: #### C BC #### [facility] [address] [place] [address] Dr. Janet Lawson RBC 4.66 106/ul Normal 4.20-5.40 [facility] Comment on above: Performed By: #### C BC #### [facility] [address] [place] [address] [address] Janet Lawson WBC 12.1 103/ul Critically high 4.0-11.0 [facility] Comment on above: Performed By: #### C BC #### [facility] [address] [place] [address] Dr. Janet Lawson FREE T4on 02-02-2023 Free T4 [Mass/Vol] 0.88 ng/dL Normal 0.76-1.46 [facility] Comment on above: Performed By: #### F T4 #### [facility] [address] [place] [address] Dr. Janet Lawson GLYCOHEMOGLOBIN A1Con 2022 ADA RECOMMENDATION SEE BELOW Normal [facility] Comment on above: Result Comment: ADA RECOMMENDED LIMIT 4.0 - 6.0 ADA THERAPEUTIC TARGET < 7.0 ACTION SUGGESTED > 7.0 Performed By: #### A 1C #### [facility] [address] [place] [address] Dr. Janet Lawson Glucose [Mass/Vol] 100 mg/dL Normal [facility] Comment on above: Performed By: #### A 1C #### [facility] [address] [place] [address] Dr. Janet Lawson HbA1c (Bld) [Mass fraction] 5.1 % Normal 4.5-6.2 [facility] Comment on above: Performed By: #### A 1C #### [facility] [address] [place] [address] Dr. Janet Lawson PREG QUANT HCGon 02-02-2023 HCG QUANT <1 Normal [facility] Comment on above: Performed By: #### T JOEL, PREGQNT ####[facility] [address] [place], [place] [address]Qb. Janet Lawson HCG RANGE SEE BELOW Normal [facility] Comment on above: Result Comment: 5-50 0.2-1 WEEK 50-500 1-2 WEEKS 100-5,000 2-3 WEEKS 500-10,000 3-4 WEEKS 1,000-50,000 4-5 WEEKS 10,000-100,000 5-6 WEEKS 15,000-200,000 6-8 WEEKS 10,000-100,000 2-3 MONTHS Performed By: #### T JOEL PREGQNT ####[facility] [address] [place], [place] [address]Jk. Janet Lawson TSHon 02-02-2023 TSH 1.430 uIU/mL Normal 0.358-3.740 [facility] Comment on above: Performed By: #### T JOEL, PREGQNT ####[facility] [address] [place], [place] [address]Zf. Janet Lawson ED Note-Physicianon 12-29-19 ED Note-Physician Basic Information Time Seen: Wander JOHNOSNJim 12/23/2022 10:43 Chief Complaint patient c/o throat pain, fatigue and body aches that started a few days ago. patient also c/o abnormal timing of menstrual cycles History of Present Illness 37-year-old female comes to the ED for evaluation of 2 separate complaints. Her first complaint have a sore throat. She developed sore throat with generalized body aches malaise over last couple of days. Difficulty speaking or swallowing. No fever, chills, nausea or vomiting. No chest pain or shortness of breath. Secondly, she reports irregular menstrual bleeding. She states she had a period a couple weeks ago, but now is having some breakthrough bleeding. She has no abdominal pain. She is concerned of the possibility of . Review of Systems A 10 point review of systems is negative except as noted above. Medical and Surgical History: Reviewed and noted Social history: Lives at home Tobacco: Denies Physical Exam Vitals & Measurements T: 36.9 ?C(Oral) HR: 92(Peripheral) RR: 18 BP: 126/78 SpO2: 99% HT: 158 cm WT: 55 kg BMI: 22.03 Nurses notes and vital signs reviewed and patient is not hypoxic. General: The patient appears well, resting comfortably. Skin: Warm, dry. Head: Atraumatic. Neck: No JVD. Eye: Normal conjunctiva. Ears, Nose, Mouth, and Throat: Moist mucous membranes. Mild pharyngeal erythema. No tonsillar hypertrophy or exudates. Uvula is midline. No stridor, trismus or drooling. Cardiovascular: Strong distal pulses. Chest wall: Respiratory: Respirations are nonlabored. Back: Normal range of motion. Musculoskeletal: Normal ROM with no gross deformity. Gastrointestinal: Urological: Neurological: Awake and alert. No focal deficits. Follows commands. Psychiatric: Cooperative. Medical Decision Making Rapid strep is negative. is negative. Patient resting comfortably on exam. She is treated symptomatically with dexamethasone discharged home to follow-up with PCP and [employer] WORKER. Patient was encouraged to return to the ED if symptoms worsen or change. Assessment/Plan Irregular uterine bleeding (N92.6: Irregular menstruation, unspecified) Pharyngitis (J02.9: Acute pharyngitis, unspecified) Orders: dexamethasone, 10 mg = 2.5 mL, Injection, Oral, Once, Stop date 12/23/22 12:01:00 EST, STAT, Start date 12/23/22 12:01:00 EST, 12/23/22 12:01:00 EST Beta hCG Qual Extra Green Li Tube Extra Lav Tube Group A Strep by PCR Rapid Strep w/rfx Disposition Plan Patient Discharge Condition Disposition: Discharged home Condition: Improved and stable Counseled: Patient and/or family were counseled to workup, results, treatment plan and follow-up recommendations Discharge Prescription List Prescriptions No active prescription medications Follow-up With When Contact Information RYLEE PERAZA In 3 days 12/26/[address] [place] [phone] Business (1) Additional Instructions: Patient Education Pharyngitis Abnormal Uterine Bleeding Attestation Patient seen and evaluated by the physician clinical physician assistant. Attending physician was present in the emergency department and supervised care. This visit was performed by both the physician and an APC. I performed all aspects of the MDM as documented. This report was transcribed using voice recognition software. Every effort was made to ensure accuracy, however, inadvertently computerized recycling sorter mistakes may be present. Appropriate healthcare PPE was used in evaluating this patient. The patient was placed in a mask. The healthcare provider was wearing mask, gloves, and utilizing proper hand hygiene. All equipment was properly cleansed. Problem List/Past Medical History Ongoing Bleeding hemorrhoid Dysuria Female infertility Nonsmoker URI with cough and congestion Uterine fibroid Historical No qualifying data Procedure/Surgical History Colonoscopy (2006), skin graft right hand. Medications Inpatient No active inpatient medications Home Waldo Saline Mist 0.65% nasal spray, 2 spray(s), Nasal, QID, 2 refills fluticasone 0.05 mg/inh Nasal [place], 2 spray(s), Nasal, Daily, 5 refills Vitafusion Gummy DHA and Folic Acid Vitamin C 500 mg oral tablet, chewable, 500 mg= 1 tab(s), Chewed, Daily Allergies No Known Allergies Social History Alcohol - Denies Alcohol Use, 04/12/2019 Current, Beer, Wine, 1-2 times per week, 09/04/2020 Substance Abuse - Denies Substance Abuse, 04/12/2019 DENIES, Household substance abuse concerns: No., 09/04/2020 Tobacco - Denies Tobacco Use, 04/12/2019 Former smoker, quit more than 30 days ago Tobacco Use:. Never Smokeless Tobacco Use:. Cigarettes, Started age 14.0 Years. Stopped age 32 Years. Household tobacco concerns: No., 08/08/2022 Family History Family history is negative Lab Results Beta hCG Ql: NEGATIVE1 (12/23/22 11:05:00) Rapid Strep: NEGATIVE1 (12/23/22 11:01:00) Group A Strep: NEGATIVE1 (12/23/22 11 (more content not included)... Normal [facility] Comment on above: Result Comment: Elec tronically Signed By: Javier Dia PA-C\.br\Date and Time Signed: 12/23/22 16:19 EST\.br\Electronically Co-Signed By: Jim Viramontes DO\.br\Date and Time Co-Signed: 12/29/22 07:39 EST Coding Summary.on 12-24-2022 Coding Summary. CD:[id number] EXv0sBm+PGhlYWQ+PE1 SLREwD28unTSzmK5MS7 pZJJ3GMZGVZKHBJW6EK Z9bzBR2RIveZ1YfziNj KhtceTQmUK37OQn1XTO 4wEwbGMqeeY0uyBMxP0 n5DzDvBC69hL42SIlnV OXwPaG7JeLlrysztQLz J0tkGwZzyIMiQbs+PHR hYmxlIHdpZHRoPScxMD WdQdCmeIclBB2eHb0vB GVyLWNvbGxhcHNlOiBj w7acBPKjDOfgMB6qkDc pL0CqcHX7OLDhc9r4Qs 48dHI+HFVkSXY2eJlhV Pxlt179AyZjx9vqCLK5 wHSiGWyvTKO6O25pe9T 2JINaXWMyUFA6iLB5bU 0ivMnqefzcO6KspLDgA oI7EJG4zPBorV4zsHjz htldrX0dKux+G50ZVT4 KMGXDKJ6KHmv3F5NeGh wvdHI+EX17AKDiCQ29x WRiwPTjj2ujzBy0YcUa MIPmIOQ0pPcvGDzdp8J dBRZtF19veSIhf5F0MD CqcUsvpZAyHkWlrUO5h W0xWErwkfgpw1xsaccs Xdeoz9qzdt45yK81B39 wVFzvGFVbZGK4TXUkAI YepLizst3bmE7dOs8+I Nwfv9fnd6qlwHj1IpDa HNRqfxBghPgeOKN5k8S eUv59O9AzlEjlt6FsIf v4rq10kXQhb3K7jNS2Y KjcHEDjdF8lRTtbQpU1 VIQuHnDcgD84kLSbNEt zQs9bsWwphVgwCW6iNR EhoxbkSKLecG3cYKLba XIegLivHX7cAXBshjjo d969ThEzWJX8DHMnhOF tH9CieY7iQpPqASGzHD FqI1YaqONyHXiyF489Z EzhWkX0DYOlfsRfG1Dc TIGgeAlyRjL2h3G3Dl7 Um2UihmmgQAG2ZWgwTV RcRlEeBfDeTtL0F1DiO fc6CEBkkXrgHD6iA1Py OSXcniymerpkdVF5LHV hXKGkiT39nCAgGBtqNl 4cm1J0s610LJAfLMRbh S23Kd1klMxeEKYgeVWO bF0mgnmaz2zvydodEsL lXDIeJMg0LOl0HJFqhZ qvVkLvHYW9NiU2EWJ7y SXatN7vyJheflystO3p Oyc+V98eqJ3xAFN7JAD 2yynlKJKhipRyOC99TU 40O7GmTuqozUXkxPY+P WXcsjZofZppQZ9zJdEi i4bki9VrAGadO4UtAPQ lOScpVis4ERYrQEP1iV T4dV9lREUpMFmhh8Y5y BY9Z4LnsyAfyp7ny4ws XPXqVHddJ82yhEQwy0Q 1UJClhMS8WTQcyAgqGl KmtR73Hih+PGNvbGdyb 6RgFzwuz6ung9epnGd5 IjMwJSIgdmFsaWduPSJ 9w8GnJs39L52uRQylKW RoPSIxNSUiIHZhbGlnb c0avL1wSd4+PGNvbCB3 wPY6nZ4mCFUaVwN9GVw jW516ZhLstZMdWpqxc4 fap0vwbPk7GfWkPBDpz dLzqHftAHY4q4QdQh76 D25aBFatYVJdCXIsHUK nFYLemUzocc3rrT3cGo 8+VW6ql0vbuh88aP07j HI+OATzKMI5fXqgPMks WPMuqR3lQRfoXtG4FWV pDhQjmY62mYUrROejWo 7jrWhkiAosKL2fSCYdi wrut179AjZul3pvSUPv nNQmKUzeTGX1H10iu2Z 7YTRaHMRkRHN6yJA3rT 1hbGlnbjogbGVmdDsgd eKkcApxKZjsVBvwV635 IHRvcDsnPlBhdGllbnQ cXgAkNYf8Z4EqMtf7CO GxgYgxHB3tqQPgSLieB z4vpXrscIdfCB9hGKUp ekwyt154FeHdp4igCJQ npYVuFAfhLKS4V43ob3 G4BJAiKTOyWNG2uAB8q V6gbEnwbjihyXCtcPzm jrLwrPlqULozEMjwS31 6IHRvcDsnPkJpcnRoIE HynBN6WV53CM82yDYxo 6G6rUG9D9CzCXSltrnq zqhjxGK7EYJpFHTfsF4 1Rb6sePjfMq7aHAWlNJ L8XMGuoLSgO0FxkS0jM rMtVUWzHWZgJ4AwvJFd NIyuQ882BVgdSvG8EQM phfFyB9RcCHLixLfjDs H3l4L1Ga6FG3L6NF82K J01rIQoh8X9fBP2F1Kp WGWzjqjneagcgHL6OHW fSPPdeL01Ux3faPheMr 2hFIHtNOO4AKNnyQDfU 7OgoL5fIeLrYRQsXNKm F2MuoTKsULhiX835VKr oRcU8RTKqxgEgD0PwKW YkvXmkHzU2d8U3Ol9BU Zc5MZ09DH60vNGhv0W8 cJT8V1VhXVPpbegdpwt mrBT4PVWlQCLjvD77Sf 4ksGojIn5sDVTxOAQ8W QGkkNSgK3PejA1fSbGl LUDjJITjU0ZjcIJpTUi rQ453GJpdPaL9OEGzda PdR5PlZEQzgVxaIzH9i 6C5Xs8TMWGbER05OKY4 dAT5CQ96LS10C5KtVrc vdGFibGU+PHRhYmxlIH dpZHRoPScxMDAlJyBzd GbhEU5nDt8yQJDeZGCt gGjyeYJqFnTol7hmOLL iMZxnER7ioNqnD0EveN P0TCRpj0h2By49C37mV 3JvdXA+TAVjaZH3cSC6 dK0kQvIfZzB5MUpeJ39 1GtSznSJkDpwnr8uwj2 ppnYd2UvY4RFMgerShx UzeLGF8z9GmPe34V51p IHdpZHRoPSIxNSUiIHZ ioSbyis9zwK4cEv3+PG EdsQQ3vXI2sP4vPgNjC aY6JBadV326FdQaeBEf Gulxw6amv3sajGo3MyN yYIAgcwZtuOjcMBO6h2 IaNq83G6MckWhtz8DqN dx2cq12jBPwa6N7mGC4 X0YsDCLokxvzpGRmbJd wHX5rVLCbnlflWUWwkV 7wYXVzL1f4DtPfOtX1N RdpR9FeclI1SSTecHAo LLfgYHH1Q38lu6T0EUO dTNUnLVM3pHN1kR5lrN lnbjogbGVmdDsgdmVyd QenMXwoFUzaD764AGKh wLorQLQqwD9pAPYklOC moBzlMY8jAPYicjlcIq 3KGQ1CTQEFPHNODpSGY VkyDrI2C5QjKqt5SRUh rOteQU4zcIIwNRplJs9 apGlxoOnrKV7kZUImsq fcHHSamH4lDNKawOXnj ItyBV7wXSDmdeqqh115 IjRpIZR9NMKxaAUkH2H umZ3nKiGfFCMxSKCmQ3 HyeZVtWKccY637VYzxW dE7AUOlhcWtR2TdVAOx oSedBlI7i5A5Zt0zPg4 iMW8hYAb5YP02FK25cE Leu3S2bMJ3I5GrYEXsu lrsdoimrNF0AFLoTTHk oS90fYSfSIceLk5yu8H 1z908KRImLZKfxB74Df 1bjPcqWLGajFTFpB6aj vfpr9kucmfvToUjVNXi ZAi9GOg6ZRRywQvoDwN sIBI1OaG3JHB4dVJxxO 4osRzjnehhtG0mUqe+M bIhZQFjpiH9W3KlDks4 DGFdpUksST7ehFRxICr zHn6wdNlfwFqwDT6aMR YopageRGOwiP3cWMDqc TIhmMzmLJ2qRZTkkyej f288MkAbJCE9BRAvyGE bH7JwyO0hVdIwAICpKR IiP5ZbwWBiVLpmK524F DlbNzP8CJYtgsBvH1Nu DVMaaMaiXbA2i0G8Vk8 FXI1qlIQ3Q8HaSfh6MY QlaOwnJE8doPAmQPwsN e4kfBajvCksJQ2wBAFl krwiRLOcpC9zGEGweIQ vtOgsFK6qPWLocanoz8 92OsOlCTW3XFAbaTCfO 4VhyX5kBoOtQZRjTVZf D1GbcZKiIOyeU316QQm sUaE3PGRebcBaI5AnEJ ZafFtqWuZ6x0U1Ux4Hn OTkA1GbS4g5V5ZxPvca dHI+OF12JEJcZW78lUQ vmDRsi6tjtPs6QmDnCQ OiKUD6vHtsTQbrb0IiE HCjW89myNJfa2N4AQAb iDpniSMnYrNmuWF7wT2 xBMkgjwjtp2yxtfywKv xyq8qaxp85yY16F77dG HdpZHRoPSIzMCUiIHZh rHuonb0nzK3zKx6+PGN pzNC8sFB1wH4aMzFiDm O8OJmxW310ZuDabCCoM czsa8alr1pkjOn0ZeYq JIXbczYzdBrzIMJ8e8U qSs67A03sKYrsYQKeYB KnDKWfFGMoyWuhak4dd G9wIi8+FD3bc5xbds91 pV92aLN+EOGfNEA3yWi nCFfyQINckB3dXEhjOw K9NKUkYdBybV77zPCsM WwfZu6ebXrbwOkfJT5x JGMqjtozh057VxEnt4l hNCZanWKtYRwyQUP3B4 1kr7H7NEIcQKUlHKA1d BB5cO4bxUstxljvvTPo dDsgdmVydGljYWwtYWx aH230XKJzpBrtDnHjyC FlI2itakMGPM8bBipbk GQ+XHQnNQM9qAewXIkd GXXjtU0wVSOlQ1h3TkH nMhT6XKkgE3AtsfT5DX AfmLQkWEMioIDRnD9fr vrpk1bthmufJuVgVWHo XWv7RFl3CRYmuJsqPtF aNBB8PqL6NOC2xOBgnO 4ipZtlhyolrV8qQuw+R klOOjwvdGQ+PHRkIHN0 oZhrSZgsEFTkmH0bHZN fO8e4SlBsFrE7DZsqI2 KtkxT3TGOiqNVdJTPmb JBLcL1aljmyx2bzhtpk WcZjOJVvTMq1TEs9CCQ ipTchYbCgZLI5VfC0OL L6rFGewS0qxAvufdnys G9wOyc+TVJOOjwvdGQ+ VFBxXRZ0jUejSKyjLVI ltX4fYEDoF4n9YjZwTr S5WTdeY9FjgnF2FSOpp JYmFMPhjHBNrB9szdae a6zqnoujGxHtTFRoIBb 2XRd9OHBkbBptZmIgBI N9ThM4GOO7nBUgyG5op WtwtipbwI2iToj+UGF5 PBN2ZD11MA07E8DcWes vdGFibGU+PHRhYmxlIH dpZHRoPScxMDAlJyBzd OsvGQ1rPg7lGPDrWKOh bGxh (more content not included)... Normal [facility] B hCG Qualon 12-23-2022 Beta hCG Ql Negative Normal [facility] Comment on above: Performed By: #### 2 [id number] #### [facility] [address] [place] [id number] Consent for Treatmenton 12-04 Consent for Treatment [id number]:127 Normal [facility] Discharge Instructionson Discharge Instructions [id number]:127 Normal [facility] ED Clinical Summaryon 2022 ED Clinical Summary [address] [address] ED Clinical Summary Person Information Name: EDUARDO ALCALA [facility] Age: 37 Years : 1985 Sex: Female Language: Mohawk PCP: RYLEE VENTURA Marital Status: Single Visit Id: Visit Reason: Body aches; Throat pain - Adult; NOT FEELING WELL, SORE THROAT Speciality: Acuity: 4 Enc Type: Emergency Med Service: Emergency Arrival: 12/23/2022 10:36:55 Discharge: 12/23/2022 12:10:08 LOS: 000 01:34 Checkin: 12/23/2022 10:36:55 Checkout: 12/23/2022 12:10:08 Dispo Type: Home (Routine DC) EVENTS: Event Name Event Status Request Date/Time Start Date/Time Complete Date/Time Arrive Complete 12/23/2022 10:36:55 12/23/2022 10:36:55 12/23/2022 10:36:55 Document Home Meds Request 12/23/2022 10:36:55 Triage Complete 12/23/2022 10:36:55 12/23/2022 10:44:01 12/23/2022 10:44:01 Bed Assign Complete 12/23/2022 10:38:57 12/23/2022 10:38:57 12/23/2022 10:38:57 Dr Exam Complete 12/23/2022 10:38:57 12/23/2022 10:43:29 12/23/2022 10:43:29 RN Exam Complete 12/23/2022 10:38:57 12/23/2022 10:55:33 12/23/2022 10:55:33 Registration Complete 12/23/2022 10:43:29 12/23/2022 11:15:14 12/23/2022 11:15:14 Pending Labs Complete 12/23/2022 10:56:58 12/23/2022 11:45:26 Dr Exam Complete 12/23/2022 10:56:59 12/23/2022 10:56:59 12/23/2022 10:56:59 Reg Complete Request 12/23/2022 11:15:14 Reg Bed Request Complete 12/23/2022 11:15:14 12/23/2022 11:15:14 12/23/2022 11:15:14 Pending Labs Complete 12/23/2022 11:16:07 12/23/2022 11:16:07 12/23/2022 11:16:07 Pending Labs Complete 12/23/2022 11:16:24 12/23/2022 11:16:24 12/23/2022 11:16:24 Pending Labs Inlab 12/23/2022 11:20:53 12/23/2022 11:20:53 Discharge Complete 12/23/2022 12:00:01 12/23/2022 12:10:58 12/23/2022 12:10:58 Meds Admin Complete 12/23/2022 12:01:48 12/23/2022 12:09:09 Transfer Complete 12/23/2022 12:10:58 12/23/2022 12:10:58 12/23/2022 12:10:58 AD[address]: [id number] [place], [place] [id number] PHYS DOC NOTES: MEDICAL INFORMATION: Prescriptions Given: Medications to Continue with No Changes Other Medications ascorbic acid (Vitamin C 500 mg oral tablet, chewable) 1 Tablets Chewed every day. fluticasone nasal (fluticasone 0.05 mg/inh Nasal [place]) 2 Sprays Nasal Inhalation every day. each nostril. Refills: 5. multivitamin, (Vitafusion Gummy DHA and Folic Acid) sodium chloride nasal (Waldo Saline Mist 0.65% nasal spray) 2 Sprays Nasal Inhalation 4 times a day. Refills: 2. PATIENT EDUCATION INFORMATION: Instructions: Pharyngitis; Abnormal Uterine Bleeding Follow up: With: Address: When: RYLEE PERAZA [address] [place] [phone] Business (1) In 3 days 12/26/2022 DIAGNOSIS: Irregular uterine bleeding; Pharyngitis Normal [facility] ED Patient Education Noteon 12-23-2022 ED Patient Education Note Infectious Dis ease Pharyngitis Pharyngitis is redness, pain, and swelling (inflammation) of the throat (pharynx). It is a very common cause of sore throat. Pharyngitis can be caused by a bacteria, but it is usually caused by a virus. Most cases of pharyngitis get better on their own without treatment. What are the causes? This condition may be caused by: ? Infection by viruses (viral). Viral pharyngitis spreads from person to person (is contagious) through coughing, sneezing, and sharing of personal items or utensils such as cups, forks, spoons, and toothbrushes. ? Infection by bacteria (bacterial). Bacterial pharyngitis may be spread by touching the nose or face after coming in contact with the bacteria, or through more intimate contact, such as kissing. ? Allergies. Allergies can cause buildup of mucus in the throat (post-nasal drip), leading to inflammation and irritation. Allergies can also cause blocked nasal passages, forcing breathing through the mouth, which dries and irritates the throat. What increases the risk? You are more likely to develop this condition if: ? You are 5?24 years old. ? You are exposed to crowded environments such as daycare, school, or dormitory living. ? You live in a cold climate. ? You have a weakened disease-fighting (immune) system. What are the signs or symptoms? Symptoms of this condition vary by the cause (viral, bacterial, or allergies) and can include: ? Sore throat. ? Fatigue. ? Low-grade fever. ? Headache. ? Joint pain and muscle aches. ? Skin rashes. ? Swollen glands in the throat (lymph nodes). ? Plaque-like film on the throat or tonsils. This is often a symptom of bacterial pharyngitis. ? Vomiting. ? Stuffy nose (nasal congestion). ? Cough. ? Red, itchy eyes (conjunctivitis). ? Loss of appetite. How is this diagnosed? This condition is often diagnosed based on your medical history and a physical exam. Your health care provider will ask you questions about your illness and your symptoms. A swab of your throat may be done to check for bacteria (rapid strep test). Other lab tests may also be done, depending on the suspected cause, but these are rare. How is this treated? This condition usually gets better in 3?4 days without medicine. Bacterial pharyngitis may be treated with antibiotic medicines. Follow these instructions at home: ? Take cfmb-duk-znhxlbz and prescription medicines only as told by your health care provider. ? If you were prescribed an antibiotic medicine, take it as told by your health care provider. Do not stop taking the antibiotic even if you start to feel better. ? Do not give children aspirin because of the association with Nelia syndrome. ? Drink enough water and fluids to keep your urine clear or pale yellow. ? Get a lot of rest. ? Gargle with a salt-water mixture 3?4 times a day or as needed. To make a salt-water mixture, completely dissolve ?-1 tsp of salt in 1 cup of warm water. ? If your health care provider approves, you may use throat lozenges or sprays to soothe your throat. Contact a health care provider if: ? You have large, tender lumps in your neck. ? You have a rash. ? You cough up green, yellow-brown, or bloody spit. Get help right away if: ? Your neck becomes stiff. ? You drool or are unable to swallow liquids. ? You cannot drink or take medicines without vomiting. ? You have severe pain that does not go away, even after you take medicine. ? You have trouble breathing, and it is not caused by a stuffy nose. ? You have new pain and swelling in your joints such as the knees, ankles, wrists, or elbows. Summary ? Pharyngitis is redness, pain, and swelling (inflammation) of the throat (pharynx). ? While pharyngitis can be caused by a bacteria, the most common causes are viral. ? Most cases of pharyngitis get better on their own without treatment. ? Bacterial pharyngitis is treated with antibiotic medicines. This information is not intended to replace advice given to you by your health care provider. Make sure you discuss any questions you have with your health care provider. Document Released: 10/19/2006 Document Revised: 10/01/2018 Document Reviewed: 11/24/2017 vitalclip Patient Education ? 2019 [employer]. Obstetrics and Gynecology Abnormal Uterine Bleeding Abnormal uterine bleeding is unusual bleeding from the uterus. It includes: ? Bleeding or spotting between periods. ? Bleeding after sex. ? Bleeding that is heavier than normal. ? Periods that last longer than usual. ? Bleeding after menopause. Abnormal uterine bleeding can affect women at various stages in life, including teenagers, women in their reproductive years, women, and women who have reached menopause. Common causes of abnormal uterine bleeding include: ? . ? Growths of tissue (polyps). ? A noncancerous tumor in the uterus (fibroid). ? I (more content not included)... Normal [facility] ED Patient Summaryon 023 ED Patient Summary [place] [id number] Patient Discharge Instructions Person Information Name: EDUARDO ALCALA RA Age: 37 Years Arrival Date: 12/23/2022 10:36:55 Discharge Diagnosis: Irregular uterine bleeding; Pharyngitis Primary Care Physician: RYLEE VENTURA Provider Information Primary Provider: Jim Viramontes DO [employer] Supervisor:Javier Dia PA-C The exam and treatment you received in the Emergency Department were for an urgent problem and are not intended as complete care. It is important that you follow up with a doctor, nurse practitioner, or physician?s clinical physician assistant for ongoing care. If your symptoms become worse or you do not improve as expected and you are unable to reach your usual health care provider, you should return to the Emergency Department. We are available 24 hours a day. EDUARDO ALCALA RA has been given the following list of patient education materials, prescriptions and follow-up instructions: Follow-up Instructions: With: Address: When: RYLEE PERAZA [address] [place] [address] [phone] Business (1) In 3 days 12/26/2022 In the event that this physician does not participate in your insurance network, please consult with your insurance company to find a nearby participating provider. Patient Education Materials: Pharyngitis; Abnormal Uterine Bleeding A MESSAGE TO ALL PATIENTS REGARDING OPIOIDS PRESCRIPTION OPIOIDS: WHAT YOU NEED TO KNOW Prescription opioids can be used to help relieve baxonhla-wt-qelqbk pain and are often prescribed following a surgery or injury, or for certain health conditions. These medications can be an important part of the treatment but also come with serious risks. It is important to work with your healthcare provider to make sure you are getting the safest, most effective care. WHAT ARE THE RISKS AND SIDE EFFECTS OF OPIOID USE? Prescription opioids carry serious risks of addiction and overdose, especially with prolonged use. An opioid overdose, often marked by slowed breathing, can cause sudden . The use of prescription opioids can have a number of side effects as well, even when taken as directed: ? Tolerance?meaning you might need to take more of the medication for the same pain relief ? Physical dependence?meaning you have symptoms of withdrawal when a medication is stopped ? Increased sensitivity to pain ? Constipation ? Nausea, vomiting, and dry mouth ? Sleepiness and dizziness ? Confusion ? Depression ? Low levels of testosterone that can result in lower sex drive, energy, and strength ? Itching and sweating RISKS ARE GREATER WITH: ? History of drug misuse, substance use disorder, or overdose ? Mental health conditions (such as depression or anxiety) ? Sleep apnea ? Older age (65 years and older) ? Avoid alcohol while taking prescription opioids. Also, unless specifically advised by your health care provider, medications to avoid include: ? Benzodiazepines (such as Xanax or Valium) ? Muscle relaxants (such as Soma or Flexeril) ? Hypnotics (such as Ambien or Lunesta) ? Other prescription opioids KNOW YOUR OPTIONS Talk to your health care provider about ways to manage your pain that don?t involve prescription opioids. Some of these options may actually work better and have fewer risks and side effects. Options may include: ? Pain relievers such as acetaminophen, ibuprofen, and naproxen ? Some medication that are also used for depression or seizures ? Physical therapy and exercise ? Cognitive behavioral therapy, a psychological, goal-directed approach, in which patients learn how to modify physical, behavioral, and emotional triggers of pain and stress. IF YOU ARE PRESCRIBED OPIOIDS FOR PAIN: ? Never take opioids in greater amounts or more often than prescribed. ? Follow up with your primary health care provider. o Work together to create a plan on how to manage your pain. o Talk about ways to help manage your pain that don?t involve prescription opioids. o Talk about any and all concerns and side effects. ? Help prevent misuse and abuse o Never sell or share prescription opioids. o Never use another person?s prescription opioids. ? Store prescription opioids in a secure place and out of reach of others (this may include visitors, children, friends, and family). ? Safely dispose of unused prescription opioids: Find your community drug take-back program or your pharmacy mail-back program, or flush them down the toilet, following guidance from the Food and Drug Administration (www.fda.gov/Drugs/ ResourcesForYou). ? Visit www.cdc.gov/drugove rdose to learn about the risks of opioids abuse and overdose. ? If you believe you may be struggling with addiction, tell your health care services manager and ask for guidance or call [facility]S National Helpline at 1- (more content not included)... Normal [facility] Grp A Strp PCRon 12-23-2022 Group A Strep Negative Normal [facility] Comment on above: Order Comment: Order Added on by Discern Rule. Result Comment: Test ing performed using DNA amplification. Performed By: #### 2 [id number] #### [facility] [address] [place] [address] Grp A Strp Intrl Ctrl Pass Normal [facility] Comment on above: Order Comment: Order Added on by Discern Rule. Performed By: #### 2 [id number] #### [facility] [address] [place] [address] MICRO OTHER TESTSOrdered By: Christine Magana on 12-23-2022 S. pyogenes Ag IA.rapid Ql (Throat) Negative (12/23/22 11:01 AM) Normal Negative [facility] Rapid Strep w/rfxon 12-23-19 S. pyogenes Ag IA.rapid Ql (Throat) Negative Normal Negative [facility] Comment on above: Performed By: #### 2 [id number] #### [facility] [address] [place] [address] SEROLOGYOrdered By: Sera Magana on 12-23-2022 Beta hCG Ql Negative (12/23/22 11:05 AM) Normal [facility] Vital Signs Date Time Vital Sign Value Performing Clinician Faci lity 12-23-2022 12:00-0500 Diastolic blood pressure 78 mm[Hg] Jim Bearde [facility] 12-23-2022 12:00-0500 Heart rate 92 /min Jim Bearde [facility] 12-23-2022 12:00-0500 Mean blood pressure 94 mm[Hg] Jim Viramontes [facility] 12-23-2022 12:00-0500 Systolic blood pressure 126 mm[Hg] Jim Bearde [facility] 12-23-2022 10:39-0500 Body temperature 98.42 [degF] Jim Bearde [facility] 12-23-2022 10:39-0500 Diastolic blood pressure 84 mm[Hg] Jim Bearde [facility] 12-23-2022 10:39-0500 Heart rate 89 /min Jim Bearde [facility] 12-23-2022 10:39-0500 Respiratory rate 18 /min Jim Baerde [facility] 12-23-2022 10:39-0500 SaO2% (BldA) [Mass fraction] 99 % Jim Viramontes [facility] 12-23-2022 10:39-0500 Systolic blood pressure 124 mm[Hg] Jim Viramontes [facility] 03-03-2022 11:28-0400 Blood Pressure Location [facility] 03-03-2022 11:28-0400 Diastolic blood pressure 62 mm[Hg] [facility] 03-03-2022 11:28-0400 Heart rate 62 /min [facility] 03-03-2022 11:28-0400 Respiratory rate 16 /min [facility] 03-03-2022 11:28-0400 SaO2% (BldA) [Mass fraction] 98 % [facility] 03-03-2022 11:28-0400 Systolic blood pressure 118 mm[Hg] [facility] 02-05-2022 10:31-0400 Blood Pressure Location Rayna Kilgore [facility] [place] 02-05-2022 10:31-0400 Body temperature 98.24 [degF] Rayna Klonk [facility] 02-05-2022 10:31-0400 Diastolic blood pressure 70 mm[Hg] Rayna Klonk [facility] 02-05-2022 10:31-0400 Heart rate 88 /min Rayna Kilgore [facility] 02-05-2022 10:31-0400 SaO2% (BldA) [Mass fraction] 99 % Rayna Kilgore [facility] 02-05-2022 10:31-0400 Systolic blood pressure 122 mm[Hg] Rayna Kilgore [facility] Encounters Encounter Date Encounter Type Care Provider Facility Start: 10-21-2023 End: 10-22-2023 ambulatory Raciel Griffin Facility:[facility] Start: 10-21-2023 End: 10-21-2023 Patient encounter procedure Raciel Griffin [facility] Start: 09-28-2023 ambulatory Raciel Griffin Facilit y:[facility] Start: 09-04-2023 End: 09-04-2023 Emergency department patient visit Marybel Mckoy Facility:[facility] Start: 02-21-2023 End: 02-22-[address] NICO GAMEZ . Facility: Start: 02-13-2023 End: 02-14-[address] NICO GAMEZ . Facility: Start: 02-02-2023 End: 02-03-[address] NICO GAMEZ . Facility: Start: 12-23-2022 End: 12-23-2022 Emergency department patient visit RYLEE PERAZA [place]: 12-23-2022 End: 12-23-2022 Emergency department patient visit Jim Viramontes [facility] Start: 03-03-2022 End: 03-03-2022 Patient encounter procedure Rylee Peraza [facility] Start: 02-05-2022 End: 02-05-2022 Patient encounter procedure Rayna Kilgore [facility] Start: 10-29-2021 End: 01-27-2022 Patient encounter procedure Rylee Peraza [facility] Procedures Date Procedure Procedure Detail Performing Clinician Start: 11-02-2006 Colonoscopy Rylee Ri ngle skin graft right hand Allcarolyne n Karmen Immunizations Immunization Date Immunization Notes Care Provider Fa cility 03-21-2019 tetanus and diphther ia toxoids, adsorbed, preservative free, for adult use (2 Lf of tetanus toxoid and 2 Lf of diphtheria toxoid) Jim Viramontes [facility] NEGATED: Highlighted row has not occurred!08-08-2022 influenza virus vaccine, unspecified formulation Jim Viramontes [facility] NEGATED: Highlighted row has not occurred!03-03-2022 SARS-CoV-2 (COVID-19) Ad26 vaccine, recombinant [facility] NEGATED: Highlighted row has not occurred!01-12-2020 influenza virus vaccine, live, attenuated, for intranasal use [facility] Payers Date Payer Category Payer Self-pay 2022 Medicaid [id number] 1986 Unknown [id number] 2.16.84 [id number] 1986 Unknown [id number] .16.84 [id number] 1986 Unknown [id number] .16.84 [id number] 1986 Unknown [id number] 2.16.8 [id number] 1986 Unknown [id number] 2.16.8 [id number] 1986 Unknown [id number] 2.16.8 [id number] 1959 Unknown [id number] Unknown [id number] 2.16.8 [id number] Social History Date Type Detail Facility Start: 04-19-2021 End: 08-08-2022 Tobacco smoking status Ex-smoker (finding) [facility] Tobacco smoking status Never [facility] Sex Assigned At Female [facility] Functional Status Date Assessment Result Facility 12-23-2022 Functional Status N/A [facility] Discharge instructions 12-23-2022 Note Date & Type Note Facility 12-23-2022 Hospital Discharg e instructions Patient Education 12/23/2022 12:10:59 Pharyngitis Pharyngitis Pharyngitis is redness, pain, and swelling (inflammation) of the throat (pharynx). It is a very common cause of sore throat. Pharyngitis can be caused by a bacteria, but it is usually caused by a virus. Most cases of pharyngitis get better on their own without treatment. What are the causes? This condition may be caused by: Infection by viruses (viral). Viral pharyngitis spreads from person to person (is contagious) through coughing, sneezing, and sharing of personal items or utensils such as cups, forks, spoons, and toothbrushes. Infection by bacteria (bacterial). Bacterial pharyngitis may be spread by touching the nose or face after coming in contact with the bacteria, or through more intimate contact, such as kissing. Allergies. Allergies can cause buildup of mucus in the throat (post-nasal drip), leading to inflammation and irritation. Allergies can also cause blocked nasal passages, forcing breathing through the mouth, which dries and irritates the throat. What increases the risk? You are more likely to develop this condition if: You are 5 24 years old. You are exposed to crowded environments such as daycare, school, or dormitory living. You live in a cold climate. You have a weakened disease-fighting (immune) system. What are the signs or symptoms? Symptoms of this condition vary by the cause (viral, bacterial, or allergies) and can include: Sore throat. Fatigue. Low-grade fever. Headache. Joint pain and muscle aches. Skin rashes. Swollen glands in the throat (lymph nodes). Plaque-like film on the throat or tonsils. This is often a symptom of bacterial pharyngitis. Vomiting. Stuffy nose (nasal congestion). Cough. Red, itchy eyes (conjunctivitis). Loss of appetite. How is this diagnosed? This condition is often diagnosed based on your medical history and a physical exam. Your health care provider will ask you questions about your illness and your symptoms. A swab of your throat may be done to check for bacteria (rapid strep test). Other lab tests may also be done, depending on the suspected cause, but these are rare. How is this treated? This condition usually gets better in 3 4 days without medicine. Bacterial pharyngitis may be treated with antibiotic medicines. Follow these instructions at home: Take [id number] and prescription medicines only as told by your health care provider. ?If you were prescribed an antibiotic medicine, take it as told by your health care provider. Do not stop taking the antibiotic even if you start to feel better. ?Do not give children aspirin because of the association with Nelia syndrome. Drink enough water and fluids to keep your urine clear or pale yellow. Get a lot of rest. Gargle with a salt-water mixture 3 4 times a day or as needed. To make a salt-water mixture, completely dissolve -1 tsp of salt in 1 cup of warm water. If your health care provider approves, you may use throat lozenges or sprays to soothe your throat. Contact a health care provider if: You have large, tender lumps in your neck. You have a rash. You cough up green, yellow-brown, or bloody spit. Get help right away if: Your neck becomes stiff. You drool or are unable to swallow liquids. You cannot drink or take medicines without vomiting. You have severe pain that does not go away, even after you take medicine. You have trouble breathing, and it is not caused by a stuffy nose. You have new pain and swelling in your joints such as the knees, ankles, wrists, or elbows. Summary Pharyngitis is redness, pain, and swelling (inflammation) of the throat (pharynx). While pharyngitis can be caused by a bacteria, the most common causes are viral. Most cases of pharyngitis get better on their own without treatment. Bacterial pharyngitis is treated with antibiotic medicines. This information is not intended to replace advice given to you by your health care provider. Make sure you discuss any questions you have with your health care provider. Document Released: 10/19/2006 Document Revised: 10/01/2018 Document Reviewed: 11/24/2017 [employer] Patient Education 2020 [employer]. 12/23/2022 12:10:59 Abnormal Uterine Bleeding Abnormal Uterine Bleeding Abnormal uterine bleeding is unusual bleeding from the uterus. It includes: Bleeding or spotting between periods. Bleeding after sex. Bleeding that is heavier than normal. Periods that last longer than usual. Bleeding after menopause. Abnormal uterine bleeding can affect women at various stages in life, including teenagers, women in their reproductive years, women, and women who have reached menopause. Common causes of abnormal uterine bleeding include: . Growths of tissue (polyps). A noncancerous tumor in the uterus (fibroid). Infection. Cancer. Hormonal imbalances. Any type of abnormal bleeding should be evaluated by a health care provider. Many cases are minor and simple to treat, while others are more serious. Treatment will depend on the cause of the bleeding. Follow these instructions at home: Monitor your condition for any changes. Do not use tampons, douche, or have sex if told by your health care provider. Change your pads often. Get regular exams that include pelvic exams and cervical cancer screening. Keep all follow-up visits as told by your health care provider. This is important. Contact a health care provider if: Your bleeding lasts for more than one week. You feel dizzy at times. You feel nauseous or you vomit. Get help right away if: You pass out. Your bleeding soaks through a pad every hour. You have abdominal pain. You have a fever. You become sweaty or weak. You pass large blood clots from your vagina. Summary Abnormal uterine bleeding is unusual bleeding from the uterus. Any type of abnormal bleeding should be evaluated by a health care provider. Many cases are minor and simple to treat, while others are more serious. Treatment will depend on the cause of the bleeding. This information is not intended to replace advice given to you by your health care provider. Make sure you discuss any questions you have with your health care provider. Document Released: 10/19/2006 Document Revised: 01/26/2019 Document Reviewed: 11/20/2017 [employer] Patient Education 2019 [facility] Follow Up Care 12/23/2022 10:38:33 With:RYLEE PERAZA Address: [address] [place] [phone] Business (1) When:12/26/2022 11:59:57 [facility] Hospital Discharge instructions 03-03-2022 Note Date & Type Note Facility 03-03-2022 Hospital Discharg e instructions Patient Education 03/03/2022 11:55:50 BMI for Adults BMI for Adults Body mass index (BMI) is a number that is calculated from a person's weight and height. BMI may help to estimate how much of a person's weight is composed of fat. BMI can help identify those who may be at higher risk for certain medical problems. How is BMI used with adults? BMI is used as a screening tool to identify possible weight problems. It is used to check whether a person is obese, overweight, healthy weight, or underweight. How is BMI calculated? BMI measures your weight and compares it to your height. This can be done either in [place] or metric measurements. Note that charts are available to help you find your BMI quickly and easily without having to do these calculations yourself. To calculate your BMI in [place] measurements, your health care provider will: 1.Measure your weight in pounds (lb). 2.Multiply the number of pounds by 703. For example, for a person who weighs 180 lb, multiply that number by 703, which equals 126,540. 3.Measure your height in inches (in). Then multiply that number by itself to get a measurement called inches squared. For example, for a person who is 70 in tall, the inches squared measurement is 70 in x 70 in, which equals 4900 inches squared. 4.Divide the total from Step 2 (number of lb x 703) by the total from Step 3 (inches squared): 126,540 4900 = 25.8. This is your BMI. To calculate your BMI in metric measurements, your health care provider will: 1.Measure your weight in kilograms (kg). 2.Measure your height in meters (m). Then multiply that number by itself to get a measurement called meters squared. For example, for a person who is 1.75 m tall, the meters squared measurement is 1.75 m x 1.75 m, which is equal to 3.1 meters squared. 3.Divide the number of kilograms (your weight) by the meters squared number. In this example: 70 3.1 = 22.6. This is your BMI. How is BMI interpreted? To interpret your results, your health care provider will use BMI charts to identify whether you are underweight, normal weight, overweight, or obese. The following guidelines will be used: Underweight: BMI less than 18.5. Normal weight: BMI between 18.5 and 24.9. Overweight: BMI between 25 and 29.9. Obese: BMI of 30 and above. Please note: Weight includes both fat and muscle, so someone with a muscular build, such as an athlete, may have a BMI that is higher than 24.9. In cases like these, BMI is not an accurate measure of body fat. To determine if excess body fat is the cause of a BMI of 25 or higher, further assessments may need to be done by a health care provider. BMI is usually interpreted in the same way for men and women. Why is BMI a useful tool? BMI is useful in two ways: Identifying a weight problem that may be related to a medical condition, or that may increase the risk for medical problems. Promoting lifestyle and diet changes in order to reach a healthy weight. Summary Body mass index (BMI) is a number that is calculated from a person's weight and height. BMI may help to estimate how much of a person's weight is composed of fat. BMI can help identify those who may be at higher risk for certain medical problems. BMI can be measured using [place] measurements or metric measurements. To interpret your results, your health care provider will use BMI charts to identify whether you are underweight, normal weight, overweight, or obese. This information is not intended to replace advice given to you by your health care provider. Make sure you discuss any questions you have with your health care provider. Document Released: 06/30/2005 Document Revised: 10/01/2018 Document Reviewed: 09/01/2018 [employer]clip Patient Education 2020 [employer] Follow Up Care 03/04/2021 11:00:27 With:Rylee Ventura Address: [email or web address] When: only if needed [facility] Medicine [place] Evaluation + Plan note Note Date & Type Note Facility Evaluation + Plan note Future Appointments Appointment Date:03/03/2022 10:00:00 AM Scheduled Provider:Rylee Ventura Location:[facility] Appointment Type: Open [facility] Hospital course Narrative Note Date & Type Note Facility Hospital course Narrative No data available for this section [facility] Hospital Discharge instructions Note Date & Type Note Facility Hospital Discharge instructions No data available for this section [facility] Progress note Note Date & Type Note Facility Progress note No data available for this section [facility] Summary Purpose Family History No Family History Records FoundNo Family History Records Found No data available for this section No Family History Records Found Advance Directives No Advanced Directives Records FoundNo Advanced Directives Records FoundNo Advanced Directives Records Found Additional Source Comments Patient Care team informatio n (unrecognized section and content) Personnel Name: RYLEE VENTURA Address: Address: [address] [place] [address] Personnel Name: Raciel Griffin MD Address: Address: [address] [place] [address] INFORMATION SOURCE (unrecogn ized section and content) DATE CREATED AUTHOR 02/27/2023 [facility] DATE CREATED AUTHOR AUTHOR'S ORGANIZ ATION 09/17/2023 [facility] DATE CREATED AUTHOR AUTHOR'S ORGANIZ ATION 10/22/2023 [facility] FOR RECORDS PERTAINING TO PATIENTS WHO ARE OR HAVE BEEN ENROLLED IN A CHEMICAL DEPENDENCY/SUBSTANCEABUSE PROGRAM, SOME INFORMATION MAY BE OMITTED. This clinical summary was aggregated from multiple sources. Caution should be exercised in using it in the provision of clinical care. This summary normalizes information from multiple sources, and as a consequence, information in this document may materially change the coding, format and clinical context of patient data. In addition, data may be omitted in some cases. CLINICAL DECISIONS SHOULD BE BASED ON THE PRIMARY CLINICAL RECORDS. [facility] [email or web address] [facility]. provides no warranty or guarantee of the accuracy or completeness of information in this document.
[2023-11-26 16:52] LABS: Basophils Absolute Auto 0.1 10^3/uL (0.0-0.1); Basophils Percent Auto 0.6 % (0.2-2.0); Eosinophils Absolute Auto 0.1 10^3/uL (0.0-0.7); Eosinophils Percent Auto 1.3 % (0.9-7.0); Hematocrit 39.4 % (36.0-48.0); Hemoglobin 12.9 g/dL (12.0-16.0); Immature Granulocytes Abs Auto 0.01 10^3/uL (0.00-0.03); Immature Granulocytes Pct Auto 0.1 % (0.0-0.5); Lymphocytes Absolute Auto 2.6 10^3/uL (1.2-3.8); Lymphocytes Percent Auto 30.8 % (20.5-60.0); Mean Corpuscular HGB Conc 32.7 g/dL (29.9-35.2); Mean Corpuscular Hemoglobin 26.5 pg (26.7-34.0); Mean Corpuscular Volume 81.1 fL (81.0-99.0); Mean Platelet Volume 9.1 fL (9.5-13.5); Monocytes Absolute Auto 0.4 10^3/uL (0.3-0.8); Neutrophils Absolute Auto 5.3 10^3/uL (1.4-6.5); Neutrophils Percent Auto 62.2 % (43.0-75.0); Platelet Count 312 10^3/uL (150-450); Red Blood Count 4.86 10^6/uL (4.20-5.40); Red Cell Distribution Width 14.7 % (11.0-15.0); White Blood Count 8.5 10^3/uL (4.0-11.0)
[2023-11-26 16:57] LABS: Anion Gap 13.2; BUN Creatinine Ratio 15.9; Carbon Dioxide 26.5 mmol/L (21.0-32.0); Chloride 103 mmol/L (98-107); Estimated GFR (African America >60 (>=60); Estimated GFR (Non-African Ame >60 (>=60); Glucose 87 mg/dL (74-106); Potassium 3.7 mmol/L (3.5-5.1); Sodium 139 mmol/L (136-145)
[2023-11-26 17:43] LABS: Partial Thromboplastin Time 31.7 sec (22.3-36.2); Prothrombin Time 10.6 sec (9.0-11.6)
== END 2023-11-26 18:02 | disposition home or self-care (01) ==
PROVIDERS: Physician Assistant; Emergency Provider Emergency Medicine
DX: K64.9 Unspecified hemorrhoids (principal); Z87.891 Personal history of nicotine dependence
CPT/HCPCS: 36415; 74022; 80048; 85025; 85610; 85730; 99284